=== PATIENT | male | born 1950 | race Caucasian/White ===

== ENCOUNTER 2022-11-26 18:26 | Emergency (ER) | payer OTHER ==
--- OUTSIDE RECORDS SUMMARY | 2022-11-26 18:30 | XMS REPORT | Clinical Summary ---
:1950 Author Organization [facility] Address [address] [place] [address] Care Team Providers Name Role Phone Castro Ghotra MD Unavailable Angelika Thomas MD Primary Care Provider Allergies Active Allergy Reactions Severity Noted Date Comments Sulfamethoxazole-Trimethoprim Hives High 09/30/2014 Medications Medication Sig Dispensed Refills Start Date End Date Status pantoprazole 1 TABLET(S) DAILY 0 09/19/2022 Active (PROTONIX) 40 mg EC HALF HOUR BEFORE tablet BREAKFAST OR FIRST MEAL multivitamin Take 1 tablet by 0 Active (THERAGRAN) tablet mouth. fluticasone propionate Inhale 1 spray (50 0 08/31/20 Active (FLONASE) 50 mcg/spray mcg) into each nasal spray nostril. buPROPion (WELLBUTRIN TAKE 1 TABLET BY 0 09/20/2022 Active SR) 150 mg 12 hr MOUTH TWICE A DAY tablet benazepril (LOTENSIN) TAKE 1 TABLET BY 0 08/11/2022 Active 40 MG tablet MOUTH TWICE A DAY atorvastatin (LIPITOR) TAKE 1 TABLET BY 0 10/11/2022 Active 10 mg tablet MOUTH EVERYDAY AT BEDTIME amLODIPine-benazepril Take 1 capsule by 0 Active (LOTREL) 10 mg-20 mg mouth. per capsule Active Problems Problem Noted Date Depressive disorder 11/14/2022 Overview: on medication; not sucidal/homicidal; co ntrolled Gastric reflux 11/14/2022 Overview: on pantoprazole; controlled Hyperlipidemia 11/14/2022 Overview: on atorvastatin; controlled Hypertension 11/14/2022 Overview: on medication; controlled Malignant neoplasm of prostate 11/14/2022 Overview: prostatectomy Neuropathy 11/14/2022 Overview: on no meds; bottom of feet Lung mass 11/12/2022 Obstructive sleep apnea syndrome 09/30/2012 Overview: on CPAP; using regularly last 10 years Encounters Date Type Specialty Care Team Description 11/26/2022 Ancillary Procedure Radiology [place] Lung willam Connell MD 11/26/2022 Ancillary Procedure Radiology [place] Lung willam Connell MD 11/26/2022 Telephone Pulmonology oDug Morrison MD 11/26/2022 Travel 11/22/2022 Orders Only Thoracic Surgery Knippel, Lung mass ( Primary LLUVIA Bella Dx) 11/20/2022 Hospital Encounter Lab Ko Galeana MD 11/20/2022 Anesthesia Event Pulmonology Lloyd Hu MD Ruiz, Justin Scott 11/20/2022 Surgery Pulmonology [facility], BRONCHOSCOPY [place] ABELARDO Connell MD EBUS PERIPHERAL LESION-RADIAL P ROBE robot case 11/20/2022 Hospital Encounter Pulmonology Lissett, Lung mass (Primary MD Ko Dx) 11/20/2022 Orders Only Pulmonology Doug Morrison Lung mass (Veda rhea Langston MD Dx) 11/20/2022 Travel 11/19/2022 Anesthesia Event Anesthesiology Kelsey Hickman NP 11/19/2022 POEM Appointments Anesthesiology Angelika Thomas MD 11/16/2022 Consult Pulmonology Felisa, Lung mass MD Nova 11/16/2022 Clinical Support Shayy Wilder, Suspected C OVID-19 (Primary Dx); LLUVIA Thompson Lung mass Marleny Gama RN 11/16/2022 Travel 11/15/2022 Prep for Surgery Pulmonology Mackenney, Lung mass ( Primary Donna, SKIVER HEEL TAP Dx) 11/14/2022 Hospital Encounter Cardiology Alec, Lung mass Latira, ENVIRONMENTAL AIR SPECIALIST 11/14/2022 Hospital Encounter Lab Alec, Lung mass Latira, ENVIRONMENTAL AIR SPECIALIST 11/14/2022 Office Visit Internal Medicine Del, Lung mass (Primary Dx); MD Mabel Major depressive disorder, single episod e, moderate; Thomas, Mixed hyperlipi demia; Angelika Barry MD Hypertension; Malignant neopl asm of prostate; Obstructive sle ep apnea syndrome 11/14/2022 NPR Patient Access Del, Diana Monroe MD 11/14/2022 Travel 11/13/2022 Ancillary Procedure Radiology William, Cancer Angelika Barry MD 11/13/2022 Orders Only Internal Medicine Alec, Lung mass (Primary Latira, ENVIRONMENTAL AIR SPECIALIST Dx) 11/12/2022 Ancillary Procedure Radiology William Cancer Angelika Barry MD 10/25/2022 Travel after 11/26/2021 Immunizations Name Administration Dates Next Due Influenza Split High Dose Preservative Free IM 05/31/2022 Surgical History Surgery Date Site/Laterality Comments PROSTATE SURGERY 2005 APPENDECTOMY 09/30/2004 - 09/29/2005 HERNIA REPAIR Bilateral multiple INNER EAR SURGERY 09/30/2015 - Right 09/29/2016 [facility] EBUS 11/20/2022 Right Procedure : BRONCHOSCOPY DX/TX INTERVENTION PERPH WITH EB US PERIPHERAL LES LESION-RADIAL MS OBE robot case; Surgeon: Loki Galeana MD; Locat ion: MAIN PULM PROC; Servi ce: PULMONARY [facility] EBUS GUIDED 11/20/2022 N/A Procedure : BRONCHOSCOPY SAMPL 3/> NODE WITH EBUS 3 OR M ORE STATION/STRUX NODES; Surgeon: Ko Galeana MD; Locat ion: MAIN PULM PROC; Servi ce: PULMONARY Medical History Medical History Date Comments Hypertension 2004 on medication; contr olled Hyperlipidemia 1999 on atorvastatin; con trolled Neuropathy 2016 on no meds; bottom o f feet Gastric reflux 2004 on pantoprazole; con trolled Depressive disorder 2009 on medication; not s ucidal/homicidal; controlled Malignant neoplasm of prostate 2004 prostatec alexis Obstructive sleep apnea syndrome 2012 on CPAP ; using regularly last 10 years Family History Medical History Relation Name Comments Colon cancer Father Isaac Linton Heart disease Father Isaac Linton Dementia Mother Hyperlipidemia Mother Alzheimer's disease Sister Relation Name Status Comments Father Isaac Linton Mother Sister Social History Tobacco Use Types Packs/Day Years Used Date Smoking Tobacco: Former Cigarettes 1.5 36 09/1965 - 09/30/2001 Smokeless Tobacco: Former Snuff Qu it: 09/30/2001 Tobacco Cessation: Counseling Given: Not Answered Alcohol Use Standard Drinks/Week Comments Not Currently 0 (1 standard drink = 0.6 oz pure alcoho l) occasional beer Sex Assigned at Date Recorded Male 10/25/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 Obstetrics History Last Filed Vital Signs Vital Sign Reading Time Taken Comments Blood Pressure 130/96 11/20/2022 1:35 PM POWDER PRESS OPERATOR Pulse 104 11/20/2022 1:35 PM POWDER PRESS OPERATOR Temperature 36.5 C (97.7 F) 11/20/2022 1:20 PM POWDER PRESS OPERATOR Respiratory Rate 16 11/20/2022 1:35 PM POWDER PRESS OPERATOR Oxygen Saturation 100% 11/20/2022 1:35 PM POWDER PRESS OPERATOR Inhaled Oxygen Concentration - - Weight 79.9 kg (176 lb 2.4 oz) 11/26/2022 12:13 PM POWDER PRESS OPERATOR Height 178.5 cm (5' 10.28") 11/14/2022 11:06 AM POWDER PRESS OPERATOR Body Mass Index 25.08 11/14/2022 11:06 AM POWDER PRESS OPERATOR Plan of Treatment Date Type Specialty Care Team Description 11/27/2022 Consult Thoracic Surgery Shiela Dan MD [address] [place], [place] [address] (Wo rk) 11/27/2022 Appointment Radiation Oncology Mary Galeana MD [address], [place] [address] (Wo rk) 11/27/2022 Consult Thoracic Medicine Alden Sutton MD [address], [place] [address] (Wo rk) 11/27/2022 Appointment Pulmonology SánchezisamarJena hernandez, [employer]IVER HEEL TAP [address] [place], [place] [address] (Wo rk) Health Maintenance Due Date Last Done Comments COVID-19 Vaccination (4 - Booster 02/16/2022 12/22/2021, , for Pfizer series) 11/10/2020 Procedures Procedure Name Priority Date/Time Associated Comments Diagnosis MRI BRAIN W WO CONTRAST Routine 11/26/2022 4:43 Lung mass R esults for this PM POWDER PRESS OPERATOR procedure are i n the results section. PETCT INITIAL TREATMENT Routine 11/26/2022 1:38 Lung mass R esults for this STRATEGY PM POWDER PRESS OPERATOR procedure are i n the results section. NGS BLOOD CONTROL Routine 11/20/2022 2:18 Resu lts for this PM POWDER PRESS OPERATOR procedure are i n the results section. HP MOLECULAR BLOOD Routine 11/20/2022 1:49 Result s for this COLLECTION PM POWDER PRESS OPERATOR procedure are i n the results section. JAMAR CASTRO KRAS MUTATION Routine 11/20/2022 12:52 Lung mass Resu lts for this MATERIAL REQUEST PM POWDER PRESS OPERATOR procedure a re in the results section. JAMAR CASTRO EML4/ALK FUSION Routine 11/20/2022 12:52 Lung mass Re sults for this ANALYSIS MATERIAL PM POWDER PRESS OPERATOR procedure are in REQUEST the results section. JAMAR CASTRO EGFR MUTATION Routine 11/20/2022 12:52 Lung mass Resu lts for this MATERIAL REQUEST PM POWDER PRESS OPERATOR procedure a re in the results section. JAMAR IHC PD-L1 MATERIAL Routine 11/20/2022 12:52 Lung mass REQUEST PM POWDER PRESS OPERATOR CYTOLOGY IMAGE-GUIDED Routine 11/20/2022 12:09 Lung mass Re sults for this FNA INTERPRETATION PM POWDER PRESS OPERATOR procedure are in the results section. CYTOLOGY IMAGE-GUIDED Routine 11/20/2022 12:05 Lung mass Re sults for this FNA INTERPRETATION PM POWDER PRESS OPERATOR procedure are in the results section. CYTOLOGY IMAGE-GUIDED Routine 11/20/2022 12:00 Lung mass Re sults for this FNA INTERPRETATION PM POWDER PRESS OPERATOR procedure are in the results section. CYTOLOGY IMAGE-GUIDED Routine 11/20/2022 11:57 Lung mass Re sults for this FNA INTERPRETATION AM POWDER PRESS OPERATOR procedure are in the results section. CYTOLOGY IMAGE-GUIDED Routine 11/20/2022 11:53 Lung mass Re sults for this FNA INTERPRETATION AM POWDER PRESS OPERATOR procedure are in the results section. BRONCHOSCOPY WITH EBUS 3 11/20/2022 11:25 Lung mass OR MORE NODES AM POWDER PRESS OPERATOR BRONCHOSCOPY WITH EBUS 11/20/2022 11:25 Lung mass PERIPHERAL LESION-RADIAL AM POWDER PRESS OPERATOR PROBE COVID-19 (SARS-COV-2) Routine 11/16/2022 1:34 Suspected COVID- 19 Results for this PCR-ASYMPTOMATIC MC PM POWDER PRESS OPERATOR procedur e are in the results section. MANUAL DIFFERENTIAL Routine 11/14/2022 12:47 Lung mass Resu lts for this PM POWDER PRESS OPERATOR procedure are i n the results section. Results CBC Routine 11/14/2022 12:47 Lung mass Results for this PM POWDER PRESS OPERATOR procedure are i n the results section. FRACTIONATED BILIRUBIN Routine 11/14/2022 12:47 Lung mass R esults for this PM POWDER PRESS OPERATOR procedure are i n the results section. TOTAL PROTEIN Routine 11/14/2022 12:47 Lung mass Results fo r this PM POWDER PRESS OPERATOR procedure are i n the results section. ASPARTATE Routine 11/14/2022 12:47 Lung mass Results for this AMINOTRANSFERASE PM POWDER PRESS OPERATOR procedure a re in the results section. ALANINE AMINOTRANSFERASE Routine 11/14/2022 12:47 Lung mass Results for this PM POWDER PRESS OPERATOR procedure are i n the results section. ALKALINE PHOSPHATASE Routine 11/14/2022 12:47 Lung mass Res ults for this PM POWDER PRESS OPERATOR procedure are i n the results section. ALBUMIN LEVEL Routine 11/14/2022 12:47 Lung mass Results fo r this PM POWDER PRESS OPERATOR procedure are i n the results section. .GLOMERULAR FILTRATION Routine 11/14/2022 12:47 Lung mass R esults for this RATE PM POWDER PRESS OPERATOR procedure are i n the results section. SERUM CREATININE Routine 11/14/2022 12:47 Lung mass Results for this PM POWDER PRESS OPERATOR procedure are i n the results section. ALPHA FETOPROTEIN TUMOR Routine 11/14/2022 12:47 Lung mass Results for this MARKER PM POWDER PRESS OPERATOR procedure are i n the results section. HEPATIC FUNCTION PANEL Routine 11/14/2022 12:47 Lung mass PM POWDER PRESS OPERATOR HEPATITIS C VIRUS Routine 11/14/2022 12:47 Lung mass Result s for this ANTIBODY PM POWDER PRESS OPERATOR procedure are i n the results section. APTT Routine 11/14/2022 12:47 Lung mass Results for this PM POWDER PRESS OPERATOR procedure are i n the results section. COMPLETE BLOOD COUNT W/ Routine 11/14/2022 12:47 Lung mass DIFFERENTIAL PM POWDER PRESS OPERATOR PROTHROMBIN TIME Routine 11/14/2022 12:47 Lung mass Results for this PM POWDER PRESS OPERATOR procedure are i n the results section. LACTATE DEHYDROGENASE Routine 11/14/2022 12:47 Lung mass Re sults for this PM POWDER PRESS OPERATOR procedure are i n the results section. MAGNESIUM LEVEL Routine 11/14/2022 12:47 Lung mass Results for this PM POWDER PRESS OPERATOR procedure are i n the results section. PHOSPHORUS LEVEL Routine 11/14/2022 12:47 Lung mass Results for this PM POWDER PRESS OPERATOR procedure are i n the results section. CALCIUM LEVEL TOTAL Routine 11/14/2022 12:47 Lung mass Resu lts for this PM POWDER PRESS OPERATOR procedure are i n the results section. GLUCOSE, RANDOM Routine 11/14/2022 12:47 Lung mass Results for this PM POWDER PRESS OPERATOR procedure are i n the results section. SERUM CREATININE Routine 11/14/2022 12:47 Lung mass PM POWDER PRESS OPERATOR BLOOD UREA NITROGEN Routine 11/14/2022 12:47 Lung mass Resu lts for this PM POWDER PRESS OPERATOR procedure are i n the results section. ELECTROLYTE PANEL Routine 11/14/2022 12:47 Lung mass Result s for this PM POWDER PRESS OPERATOR procedure are i n the results section. EKG, 12-LEAD (SCHEDULED) Routine 11/14/[address] CHEST Routine 10/29/2022 8:16 Cancer Results for this PM POWDER PRESS OPERATOR procedure are i n the results section. OSI CHEST Routine 09/03/2022 11:53 Cancer Results for this AM POWDER PRESS OPERATOR procedure are i n the results section. after 11/26/2021 Results MRI Brain with and without Contrast (11/26/2022 4:43 PM POWDER PRESS OPERATOR) Anatomical Region Laterality Modality Head Magnetic Resonance Specimen (Source) Anatomical Collection Method Collection Time Re ceived Time Location / / Volume Laterality 11/26/2022 5:00 PM POWDER PRESS OPERATOR Impressions 11/26/2022 5:17 PM POWDER PRESS OPERATOR 1. 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 2. No evidence of intracranial metasta sis. Findings were emailed to clinical team eris y the time of dictation. Narrative 11/26/2022 5:17 PM POWDER PRESS OPERATOR FULL RESULT: EXAMINATION: MRI BRAIN W WO CONTRAST on 11/26/2022 4:43 PM HISTORY: Lung mass INDICATION: Cancer staging or restaging COMPARISON: None TECHNIQUE: Multi-sequence MRI of the bra in with and without intravenous contrast as per standard departmental protocol. FINDINGS: There is focus of restricted diffusion i n the right occipital lobe (series 8 image 14). Punctate focus of restricted diffusion in the left frontal lobe on series 8 image 24. There is no abnormal parenchymal or lept omeningeal enhancement. There is no evidence of acute infarction , new hemorrhage, or hydrocephalus. The visualized major intracranial vascular flow voids are unremarkable. The osseous structures and extra-cranial soft tissues are unremarkable. The orbital structures unremarkable. The paranasal sinuses and mastoid air ce lls are clear. Procedure Note Krissy Bailey MD - 11/26/2022Formatting o f this note might be different from the original. FULL RESULT: EXAMINATION: MRI BRAIN W WO CONTRAST on 11/26/2022 4:43 PM HISTORY: Lung mass INDICATION: Cancer staging or restaging COMPARISON: None TECHNIQUE: Multi-sequence MRI of the bra in with and without intravenous contrast as per standard departmental protocol. FINDINGS: There is focus of restricted diffusion i n the right occipital lobe (series 8 image 14). Punctate focus of restricted diffusion in the left frontal lobe on series 8 image 24. There is no abnormal parenchymal or lept omeningeal enhancement. There is no evidence of acute infarction , new hemorrhage, or hydrocephalus. The visualized major intracranial vascular flow voids are unremarkable. The osseous structures and extra-cranial soft tissues are unremarkable. The orbital structures unremarkable. The paranasal sinuses and mastoid air ce lls are clear. IMPRESSION: 1. Small foci of acute ischemia in the r ight occipital and left frontal lobe likely representing embolic infarcts. 2. No evidence of intracranial metastasi s. Findings were emailed to clinical team b y the time of dictation. Ko Galeana MD IMG MRI ORDERABLES PETCT Initial Treatment Strategy (11/26/2022 1:38 PM POWDER PRESS OPERATOR) Anatomical Region Laterality Modality Whole Body Positron Emission To mography (PET) Specimen (Source) Anatomical Collection Method Collection Time Re ceived Time Location / / Volume Laterality 11/26/2022 2:09 PM POWDER PRESS OPERATOR Impressions 11/26/2022 4:36 PM POWDER PRESS OPERATOR 1. Hypermetabolic central right lung mass corresponds with recently biopsied primary lung malignancy. 2. Additional right lung solid, ground glass, and cavitary lesions, some of which are new since chest CT on 10/29/2022, are hypermetabolic and are suspicious for satellite lesions. 3. No hypermetabolic solange disease. I personally reviewed these image(s) cirilo gilliam with the resident's/fellow's interpretations, certify that if a procedure was performed I was physically present, and agree with the final report. 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 To allow for distribution and uptake of radiotracer, the patient was asked to rest quietly for approximately 60-90 minutes. PET/ CT imaging was performed from the skull vertex to mid thigh. CT scanning was done for attenuation correction, image registration, and diagnosis with scan paramete rs optimized to minimize radiation expos ure to the patient. SUV measurements are reported as maximum SUV based on body weight unless otherwise specified. Findings: Head and Neck: No focal activity within the brain. Paranasal sinuses are unremarkable. No hypermetabolic or enlarged cervical lymphadenopathy. Chest: Extensive background centrilobula r emphysema is again noted. Dominant hypermetabolic masslike opacity along the inferior right upper lobe and medial right middle lobe demonstrates SUV of 15. Given extensive adjacent platelike atelectasis and lack of intravenous c ontrast, definite measurement of this ma ss is difficult to provide. However, this mass is relatively unchanged in size on series 4 image 130, measuring 5 cm today, previously 4.9 cm. Adjacent consolidative masslike opacity in the right upper lobe image 122 and proximal 3.7 x 2.6 cm demonstrates SUV of 4. At least 3 FDG avid groundglass and cavi tary lesions in the right lung are new, including: * Cavitary 1.4 cm hypermetabolic lesio n in the posterior medial right lung apex (image 92) with SUV of 2.7. * Cavitary 1 cm hypermetabolic lesion in the posterior right upper lung (image 113) with SUV of 3.5. * Ground glass hypermetabolic patchy o pacity measuring 2.1 cm along the posterior right upper lobe (image 120) with SUV of 4.1. No hypermetabolic or enlarged mediastina l, hilar, or axillary lymph nodes. No pleural or pericardial effusion. Multivessel coronary artery calcifications are noted. Abdomen and Pelvis: No suspicious hepati c lesion. Unremarkable gallbladder, spleen, pancreas, and adrenals. Unremarkable kidneys with physiologic uptake in the urinary tract. Metallic clips in the prost atectomy bed noted. Physiologic uptake t hroughout the otherwise unremarkable bowel. No hypermetabolic or enlarged abdominope lvic lymph nodes. Musculoskeletal: No hypermetabolic or laba spicious lytic or blastic osseous lesions. Procedure Note Joey Lee MD - 11/26/2022Formattin g of this note might be different from the original. 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 To allow for distribution and uptake of radiotracer, the patient was asked to rest quietly for approximately 60-90 minutes. PET/CT imag ing was performed from the skull vertex to mid thigh. CT scanning was done for attenuation correction, image registration, and diagnosis with scan parameters optimized to minimize radiation exposure to the patie nt. SUV measurements are reported as maximum SUV based on body weight unless otherwise specified. Findings: Head and Neck: No focal activity within the brain. Paranasal sinuses are unremarkable. No hypermetabolic or enlarged cervical lymphadenopathy. Chest: Extensive background centrilobula r emphysema is again noted. Dominant hypermetabolic masslike opacity along the inferior right upper lobe and medial right middle lobe demonstrates SUV of 15. Given extensive adjacent platelike atelectasis and lack of intravenous contrast, definite measurement of this mass is difficult to provide. However, this mass is relatively unchanged in size on series 4 image 130, measuring 5 cm today, previously 4.9 cm. Adjacent consolidative masslike opacity in the right upper lobe image 122 and proximal 3.7 x 2.6 cm demonstrates SUV of 4. At least 3 FDG avid groundglass and cavi tary lesions in the right lung are new, including: * Cavitary 1.4 cm hypermetabolic lesion in the posterior medial right lung apex (image 92) with SUV of 2.7. * Cavitary 1 cm hypermetabolic lesion in the posterior right upper lung (image 113) with SUV of 3.5. * Ground glass hypermetabolic patchy opa city measuring 2.1 cm along the posterior right upper lobe (image 120) with SUV of 4.1. No hypermetabolic or enlarged mediastina l, hilar, or axillary lymph nodes. No pleural or pericardial effusion. Multivessel coronary artery calcifications are noted. Abdomen and Pelvis: No suspicious hepati c lesion. Unremarkable gallbladder, spleen, pancreas, and adrenals. Unremarkable kidneys with physiologic uptake in the urinary tract. Metallic clips in the prostatectomy bed noted. Physiologic upt itzel throughout the otherwise unremarkable bowel. No hypermetabolic or enlarged abdominope lvic lymph nodes. Musculoskeletal: No hypermetabolic or alba spicious lytic or blastic osseous lesions. IMPRESSION: 1. Hypermetabolic central right lung mas s corresponds with recently biopsied primary lung malignancy. 2. Additional right lung solid, groundgl ass, and cavitary lesions, some of which are new since chest CT on 10/29/2022, are hypermetabolic and are suspicious for satellite lesions. 3. No hypermetabolic solange disease. I personally reviewed these image(s) cirilo gilliam with the resident's/fellow's interpretations, certify that if a procedure was performed I was physically present, and agree with the final report. Ko Galaena MD IMG PETCT ORDERABLES NGS Blood Control (11/20/2022 2:18 PM POWDER PRESS OPERATOR) athologist Signature Molecular Yes [facility]CER [place] (Received) Specimen Anatomical Collection Method Collection Time Receive d Time (Source) Location / / Volume Laterality Blood 11/20/2022 2:18 PM 3 9:20 POWDER PRESS OPERATOR AM POWDER PRESS OPERATOR Ko MERAZ HP MOLECULAR DIAG IF ORDERABLES Performing Organization Address City/State/ZIP Code Phon e Number [facility] CANCER Unless otherwise noted, [address] all lab tests performed by: Division of Pathology and Laboratory Medicine [facility] Specimen Collection -FFPE (11/20/2022 1:49 PM POWDER PRESS OPERATOR) [facility] Method Time [facility] Molecular Yes [facility] (Received) [facility] Beaker Ap Link [id number] [facility] Block Number [id number] [facility] (Qualitative) [facility] Specimen Anatomical Collection Method Collection Time Receive d Time (Source) Location / / Volume Laterality FFPE 11/20/2022 1:49 PM 3 1:49 POWDER PRESS OPERATOR PM POWDER PRESS OPERATOR Ko CHAPMAN MD NONBLOOD COLLECTIO NS Performing Organization Address City/[facility]/ZIP Code Phon e Number [facility] CANCER Unless otherwise noted, [address] all lab tests performed by: Division of Pathology and Laboratory Medicine Ronny Rocha MD EML4/ALK Fusion Analysis Material Request (11/20/2022 12:52 PM POWDER PRESS OPERATOR) Component Value Ref Test Analysis Performed At [facility] Method Time [facility] Archived The test is to be performed on tissue from case [id number] 11/23/2022 [facility] Material The case report, slides, an d blocks for the cited accession were retrieved from archives. The pathologist examined the candidate H&E slide and selected the block appropriate to the specifications o 9:51 AM POWDER PRESS OPERATOR f the ordered molecular anal ysis. Unstained slides and H&E slide were prepared and forwarded to Molecular Diagnostic Laboratory where the subject molecular test will be performed. Results will be reported separately. Pathologist Electronically 11/23/2022 [facility] Signature signed by Ariel 9:51 AM JUAN PABLO Jovel MD on 11/23/22 9:51 AM Specimen Anatomical Collection Method Collection Time Receive d Time (Source) Location / / Volume Laterality Tissue 11/20/2022 12:52 11/20/2022 PM POWDER PRESS OPERATOR 12:52 PM POWDER PRESS OPERATOR Ko Galeana MD, [facility] AP BIOMARKERS Performing Organization Address City/State/ZIP Code [place] [address] [address] MD KRAS Mutation Material Request (11/20/2022 12:52 PM POWDER PRESS OPERATOR) Component Value Ref Test Analysis Performed At [facility] Method Time Signature Archived The test is to be performed on tissue from case [id number] 11/23/2022 [facility] Material The case report, slides, an d blocks for the cited accession were retrieved from archives. The pathologist examined the candidate H&E slide and selected the block appropriate to the specifications o 9:51 AM POWDER PRESS OPERATOR f the ordered molecular anal ysis. Unstained slides and H&E slide were prepared and forwarded to [facility] Diagnostic Laboratory where the subject molecular test will be performed. Results will be reported separately. Pathologist Electronically 11/23/2022 [facility] Signature signed by Ariel 9:51 AM JUAN PABLO Jovel MD on 11/23/22 9:51 AM Specimen Anatomical Collection Method Collection Time Receive d Time (Source) Location / / Volume Laterality Tissue 11/20/2022 12:52 11/20/2022 PM POWDER PRESS OPERATOR 12:52 PM POWDER PRESS OPERATOR Ko Galeana MD [facility] BIOMARKERS Performing Organization Address City/State/ZIP Code Phon e Number [facility] [place] [address] [address] MD EGFR Mutation Material Request (11/20/2022 12:52 PM POWDER PRESS OPERATOR) Component Value Ref Test Analysis Performed At [facility] Method Time Signature Archived The test is to be performed on tissue from case [id number] 11/23/2022 [facility] Material The case report, slides, an d blocks for the cited accession were retrieved from archives. The pathologist examined the candidate H&E slide and selected the block appropriate to the specifications o 9:51 AM POWDER PRESS OPERATOR f the ordered molecular anal ysis. Unstained slides and H&E slide were prepared and forwarded to [facility] Diagnostic Laboratory where the subject molecular test will be performed. Results will be reported separately. Pathologist Electronically 11/23/2022 [facility] Signature signed by Ariel 9:51 AM JUAN PABLO Jovel MD on 11/23/22 9:51 AM Specimen Anatomical Collection Method Collection Time Receive d Time (Source) Location / / Volume Laterality Tissue 11/20/2022 12:52 11/20/2022 PM POWDER PRESS OPERATOR 12:52 PM POWDER PRESS OPERATOR Ko Galeana MD [facility] AP BIOMARKERS Performing Organization Address City/State/ZIP Code Phon e Number [facility] [place] [address] [address] IHC PD-L1 Material Request (11/20/2022 12:52 PM POWDER PRESS OPERATOR) Specimen Anatomical Collection Method Collection Time Receive d Time (Source) Location / / Volume Laterality Tissue 11/20/2022 12:52 11/20/2022 PM POWDER PRESS OPERATOR 12:52 PM POWDER PRESS OPERATOR Ko Galeana MD [facility] IP [facility] BIOMARKERS Performing Organization Address City/State/ZIP Code [place] [address] [address] (ABNORMAL) Cytology Image-Guided FNA Interpretation (11/20/2022 12:09 PM POWDER PRESS OPERATOR) Only the most recent of5 resultswithin the time period is included. Component Value Ref Test Analysis Performed Pathologis t Range Method Time At Signature Gross Specimens procured: 11/21/2022 [facility] BS Description 6 Diff Quik; 6 Pap Stain Slides 6:10 P M 5 ml, slightly cloudy bloody fluid in RPMI POWDER PRESS OPERATOR 1 Cell Block Date/Time Placed in Formalin: 11/20/22 2:58 PM Size: 2.24 cm Immediate assessment for specimen adequacy was made x1 by Dr Berenice Pride. Immediate Adequate 11/21/2022 [facility] Assessment cellularity, favor 6:10 PM malignant POWDER PRESS OPERATOR Major MALIGNANT (A) 11/21/2022 [facility] Samaria ctronically Classification 6:10 PM paula d by Kallie Pride MD on 11/21/2022 at 6:10 PM Diagnosis Lymph node, right inferior interlobar, 11Ri, fin e needle aspiration: 11/21/2022 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 Immun operoxidase stains, performed on cell block sections with appropriate controls, show that the tumor cells are positive for p40 and negative for TTF-1. These results are in keeping with the above diagnosis. 6:10 PM POWDER PRESS OPERATOR PD-L1 (Clone [id number], Dako Phar mDx) Tumoral Proportion Score (TPS): positive, >90% Assay Information: The PD-L1 assay is manufactured by [employer] and uses a monoclonal anti-PD-L1, clone [id number]. It is performed on formalin-fixed paraffin- embedded tissue using an [employer] Dako autostai ner and polymer based detect ion kit, as specified by the sales program coordinator. It is approved for use as a sas developer analyst diagnostic assay for specific therapies on certain tumor types. Interpretation guidelines du y. For tumoral percentage sc ore (TPS), the percentage of tumoral membranous labeling of any intensity is assessed. Please refer to the intended therapy package insert for appropriate use of results. Per formance characteristics on other tissue types such decalcified specimens and on non-approved tumor types and therapies cannot be guaranteed. Retained/Biomark SR: 12 S, 2 CB, 3 IP 11/21/2022 [facility] er Testing 6:10 PM Biomarker Testing: POWDER PRESS OPERATOR MDL Cell Block: >300 cells MDL Pap: 4 S MDL DQ: 1 S FISH DQ: 1 S Informational Some tests 11/21/2022 [facility] Points reported here may 6:10 PM have been POWDER PRESS OPERATOR developed and performance characteristics determined by [facility] Pathology and Laboratory Medicine. These tests have not been specifically cleared or approved by the U.S. Food and Drug Administration. Specimen Anatomical Collection Method Collection Time Receive d Time (Source) Location / / Volume Laterality Fine Needle Asp 11/20/2022 12:09 11/20/19 23 2:28 (Lymph Node(s), PM POWDER PRESS OPERATOR PM POWDER PRESS OPERATOR Right, Inferior Interlobar, 11Ri) Comment: 11Ri Mass size 22.4 mm Ko Galeana MD LAB CYTOLOGY ORDERABLES Performing Organization Address City/State/ZIP Code Phon e Number [facility] [place] [address] [address] COVID-19 (SARS-CoV-2) PCR-Asymptomatic (11/16/2022 1:34 PM POWDER PRESS OPERATOR) [facility] Method Time Signature COVID19 (SARS Not Detected Not Detected PR CoV-2) [facility] Comment: This test is a qualitative reverse-trans criptase polymerase chain reaction (RT- PCR) developed for the Stephanie MELISSA [employer] system and intended for qualitative detection of SARS CoV-2 RNA in nasopharyngeal a nd oropharyngeal swab specimens collecte d from any individuals, including those suspected o f COVID-19 by their healthcare provider, and those without symptoms or other reasons to suspect COVID-19. A fact sheet for patients provided by the sales program coordinator ( [employer]) can be rev iewed at: https://www.Cloudian.gov/media/199404/downloa d. A fact sheet for Health Care providers is provided by the sales program coordinator ([employer]) and can be reviewed at: https://www.Cloudian.gov/media/118627/download Results must be interpreted within the c ontext of all relevant clinical and laboratory findings and should not form the sole basis for a diagnosis or treatment decision. Positive results do not rule out bacterial infection or co- infection with other viruses. Negative results do not rule ou t SARS-CoV-2 and must be combined with clinical observations, patient history, and/or epidemiological information. "Presumptive Positive" results are due t o partial amplification of SARS-CoV-2 targets and indicates low amounts of virus present in the specimen at or near the limit of detection. Regardless, individuals with "Presumptive Positive" results should be managed per institutional guidelines as individuals positive for SARS-CoV-2 virus, including use of appropriate infection control protocols. Internal controls are included to assess for possible amplification inhibitors. If inhibition is detected, testing is repeated and if inhibition is confirmed the specimen is resulted as "Invalid". When an "Invalid" result occurs, it is recomm ended to wait 3 days before submitting a new spec imen for testing if clinically indicated. This assay has been approved by the FDA for use only under Emergency Use Authorization (EUA) in laboratories that have been CLIA-certified to perform moderate-complexity and high-complexity tests. The performance characteristics of this assay were verified by the Microbiology Laboratory at [facility], CLIA Accreditation #: [id number] and CAP Accreditation #: [id number]. COVID19 SARS Source ENVIR[employer]MENTAL [employer] SPECIALIST Swab PR [facility] COVID19 SARS Indication Pre-OR Procedure [facility] Specimen (Source) Anatomical Collection Method Collection Time Re ceived Time Location / / Volume Laterality Nasopharyngeal Swab 11/16/2022 1:34 11/16 PM POWDER PRESS OPERATOR 3:17 PM POWDER PRESS OPERATOR Ko Galeana MD MICROBIOLOGY - GENERAL ORDER MARVIN Performing Organization Address City/[facility]/ZIP Code Phon e Number [facility] CANCER Unless otherwise noted, [address] all lab tests performed by: Division of Pathology and Laboratory Medicine [address] [place] [address] Glucose, Random (11/14/2022 12:47 PM POWDER PRESS OPERATOR) athologist Signature Glucose Random 81 70 - 199 [facility] mg/dL [facility] Comment: Effective 04/25/16, the glucose reference intervals have been updated based on [place] Diabetes [employer] guidelines (Standards of Medical Care in Diabetes 2016. Diabetes Care 2016; 39: S13-S22). Fasting blood glucose: Normal: 70-99 mg/dL Impaired fasting glucose (increased risk for diabetes or pre-diabetes): 100- 125 mg/dL Diabetes mellitus: >/=126 mg/dL Random blood glucose: Normal: 70-199 mg/dL Note: Random glucose >100 mg/dL is assoc iated with increased risk for diabetes Specimen Anatomical Collection Method Collection Time Receive d Time (Source) Location / / Volume Laterality Blood 11/14/2022 12:47 11/14/2022 1:08 PM POWDER PRESS OPERATOR PM POWDER PRESS OPERATOR Cyndi Michael NP LAB BLOOD ORDERABLES Performing Organization Address City/[facility]/ZIP Code Phon e Number [facility] Unless otherwise noted, [address] all lab tests performed by: Division of Pathology and Laboratory Medicine [address] [place] [address] .Serum Creatinine (11/14/2022 12:47 PM POWDER PRESS OPERATOR) athologist Signature Creatinine 0.75 0.67 - 1.17 [facility] mg/dL [facility] Specimen Anatomical Collection Method Collection Time Receive d Time (Source) Location / / Volume Laterality Blood 11/14/2022 12:47 11/14/2022 1:08 PM POWDER PRESS OPERATOR PM POWDER PRESS OPERATOR Cyndi Michael NP LAB BLOOD ORDERABLES Performing Organization Address City/[facility]/ZIP Code Phon e Number [facility] Unless otherwise noted, [address] all lab tests performed by: Division of Pathology and Laboratory Medicine [address] [place] [address] (ABNORMAL) .CBC (11/14/2022 12:47 PM POWDER PRESS OPERATOR) athologist [facility] WBC 14.7 (H) 4.0 - 11.0 [facility] RBC 4.32 (L) 4.50 - PR MD 6.00 M/[facility] Hgb 13.3 (L) 14.0 - PR MD 18.0 gm/dL [facility] Hct 40.7 40.0 - PR MD 54.0 % [facility] MCV 94 82 - 98 [facility] MCH 30.8 27.0 - PR MD 31.0 pg [facility] MCHC 32.7 31.0 - PR MD 36.0 gm/dL [facility] RDW-SD 45.5 35.1 - PR MD 46.3 [facility] RDW-CV 13.3 12.0 - PR MD 15.5 % [facility] Platelet count 389 140 - 440 [facility] K/[facility] MPV 11.3 (H) 4.0 - 10.4 [facility] INRBC 0.0 <=0.0 % [facility] Comment: The INRBC (instrument NRBC) value reflec ts the enumeration of nucleated red blood cells contained i n a 200uL sample of whole blood analyzed by the instrumen t. This value may differ from the NRBC value reported in a manual differential, which is based on a 100 cell differentia l. Specimen Anatomical Collection Method Collection Time Receive d Time (Source) Location / / Volume Laterality Blood 11/14/2022 12:47 11/14/2022 1:01 PM POWDER PRESS OPERATOR PM POWDER PRESS OPERATOR Cyndi Michael NP LAB BLOOD ORDERABLES Performing Organization Address City/State/ZIP Code Phon e Number [facility] Unless otherwise noted, [address] all lab tests performed by: Division of Pathology and Laboratory Medicine [address] [place] [address] Glomerular Filtration Rate (11/14/2022 12:47 PM POWDER PRESS OPERATOR) [facility] e[facility] 95 >=60 [facility] mL/min/1.73 [facility] sq. m Comment: The eGFRcr is calculated with the 2020 KD-EPI creatinine equation using creatinine, patient's age, and sex for adults 18 years of age and older. Other factors, especially muscle mass, may affect accuracy and need to be considered. According to the Kidney Disease: Improvi ng Global Outcomes (KDIGO) CKD Work Group 2012 Clinical Practice Guideline, chronic kidney disease (CKD) is defined as the abnormalities of kidney structure or function, present for more than 3 months, with implications for health. CKD should be c lassified by cause, GFR category, and albuminuria category. KDIGO guidelines provide the following GFR categories Stage Description GFR mL/min/1.73 m2 G1* Normal or high >= 90 G2* Mildly decreased 60-89 G3a Mildly to moderately decreased 45-59 G3b Moderately to severely decreased 30- 44 G4 Severely decreased 15-29 G5 Kidney failure <15 *In the absence of evidence of kidney da mage, neither G1 nor G2 fulfill criteria for CKD. Specimen Anatomical Collection Method Collection Time Receive d Time (Source) Location / / Volume Laterality Blood 11/14/2022 12:47 11/14/2022 1:08 PM POWDER PRESS OPERATOR PM POWDER PRESS OPERATOR Cyndi Michael NP LAB BLOOD ORDERABLES Performing Organization Address City/State/ZIP Code Phon e Number [facility] CANCER Unless otherwise noted, [place] [address] [address] all lab tests performed by: Division of Pathology and Laboratory Medicine [facility] Fractionated Bilirubin (11/14/2022 12:47 PM POWDER PRESS OPERATOR) P athologist Signature Bili Total 0.4 <=1.2 mg/dL [facility] Comment: Indocyanine Green (ICG) may cause falsel y elevated bilirubin results. Total and direct bilirubin must not be measured from samples containing indocyanine green. False elevation of total bilirubin can b e seen in patients with IgG concentrations above 28 g/L. Bili Direct <0.2 <=0.3 mg/dL PR MD [facility] Comment: Indocyanine Green (ICG) may cau se falsely elevated bilirubin results. Total and direct bilirubin must not be measure d from samples containing indocyanine green. Bili Indirect See Note 0.0 - 0.9 mg/dL PR MD [facility] Comment: Unable to calculate Indirect Bi lirubin result due to some parameters are outside reportable range Specimen Anatomical Collection Method Collection Time Receive d Time (Source) Location / / Volume Laterality Blood 11/14/2022 12:47 11/14/2022 1:08 PM POWDER PRESS OPERATOR PM POWDER PRESS OPERATOR Cyndi Michael NP LAB BLOOD ORDERABLES Performing Organization Address City/State/ZIP Code Phon e Number [facility] CANCER Unless otherwise noted, [address] all lab tests performed by: Division of Pathology and Laboratory Medicine [address] [place] [address] Hepatitis C Virus Ab (11/14/2022 12:47 PM POWDER PRESS OPERATOR) Patholo gist Method Time Signature HCVAb. Non Reactive Non Reactive [facility] Comment: Antibody detection in the immunocompromi sed and immunosuppressed population may be delayed or absent entirely. Therefore serial testing, correlation with other clinical findings, and supplemental testin g (if available) should be taken into co nsideration when interpreting the results. Specimen Anatomical Collection Method Collection Time Receive d Time (Source) Location / / Volume Laterality Blood 11/14/2022 12:47 11/14/2022 1:32 PM POWDER PRESS OPERATOR PM POWDER PRESS OPERATOR Cyndi Michael NP LAB BLOOD ORDERABLES Performing Organization Address City/[facility] Phon e Number [facility] Unless otherwise noted, [address] all lab tests performed by: Division of Pathology and Laboratory Medicine [address] [place] [address] aPTT (11/14/2022 12:47 PM POWDER PRESS OPERATOR) P athologist Signature aPTT 28.4 22.8 - 34.2 [facility](s) [facility] Specimen Anatomical Collection Method Collection Time Receive d Time (Source) Location / / Volume Laterality Blood 11/14/2022 12:47 11/14/2022 1:01 PM POWDER PRESS OPERATOR PM POWDER PRESS OPERATOR Narrative [facility] - 1:31 PM POWDER PRESS OPERATOR This lab cannot be scheduled at the [facility] locations due to collection/proccessing restrictions: [facility] and [facility]. Cyndi Michael NP LAB BLOOD ORDERABLES Performing Organization Address City/[facility]/ZIP Code Phon e Number [facility] Unless otherwise noted, [address] all lab tests performed by: Division of Pathology and Laboratory Medicine [address] [place], [place] [address]d AFP (11/14/2022 12:47 PM POWDER PRESS OPERATOR) [facility] AFP <2.7 <=8.3 ng/mL [facility] Comment: Results greater than 45,875.00 ng/mL may not be reliable due to matrix effect with extended dilution as it exceeds the sales program coordinator's recommended limit. Caution should be exercised when interpreting such values and done in conjunction with clinical context. This test is measured by electrochemilum inescence immunoassay on Stephanie Melissa immunoassay analyzers. Results obtained in different methods are not interchangeable. Specimen Anatomical Collection Method Collection Time Receive d Time (Source) Location / / Volume Laterality Blood 11/14/2022 12:47 11/14/2022 1:09 PM POWDER PRESS OPERATOR PM POWDER PRESS OPERATOR Cyndi Michael NP LAB BLOOD ORDERABLES Performing Organization Address City/State/ZIP Code Phon e Number [facility] CANCER Unless otherwise noted, [place] [address] [place] all lab tests performed by: Division of Pathology and Laboratory Medicine [address] [place] [address] (ABNORMAL) Differential (11/14/2022 12:47 PM POWDER PRESS OPERATOR) [facility] Neutrophil % 73.6 (H) 42.0 - [facility] 66.0 % [facility] CENTER Lymphocyte % 14.3 (L) 24.0 - [facility] 44.0 % [facility] Monocyte % 7.6 (H) 2.0 - 7.0 [facility] Eosinophil % 3.6 1.0 - 4.0 [facility] Basophil % 0.5 0.0 - 1.0 [facility] IGRE % 0.4 0.0 - 0.4 [facility] Comment: IGRE % count includes Metamyelo cytes, Myelocytes, and Promyelocytes. Neutrophil Abs 10.84 (H) 1.70 - 7.30 K/uL [facility] Lymphocyte Abs 2.10 1.00 - 4.80 K/uL [facility] Monocyte Abs 1.12 (H) 0.08 - 0.70 K/uL [facility] Eosinophil Abs 0.53 (H) 0.04 - 0.40 K/uL [facility] Basophil Abs 0.07 0.00 - 0.10 K/uL [facility] IG Abs 0.06 (H) 0.00 - 0.04 K/uL PR MD NAIN Pat[facility] Specimen Anatomical Collection Method Collection Time Receive d Time (Source) Location / / Volume Laterality Blood 11/14/2022 12:47 11/14/2022 PM POWDER PRESS OPERATOR 1:01 PM POWDER PRESS OPERATOR Cyndi Michael NP LAB BLOOD ORDERABLES Performing Organization Address City/[facility] Phon e Number [facility] CANCER Unless otherwise noted, [address] all lab tests performed by: Division of Pathology and Laboratory Medicine [address] [place] [address] Prothrombin Time with INR (11/14/2022 12:47 PM POWDER PRESS OPERATOR) athologist Signature PT 13.3 11.9 - 14.1 [facility](s) [facility] INR 1.06 0.89 - 1.10 [facility] Specimen Anatomical Collection Method Collection Time Receive d Time (Source) Location / / Volume Laterality Blood 11/14/2022 12:47 11/14/2022 1:01 PM POWDER PRESS OPERATOR PM POWDER PRESS OPERATOR Narrative [facility] - 1:31 PM POWDER PRESS OPERATOR This lab cannot be scheduled at the [facility] locations due to collection/proccessing restrictions: [facility] and [facility]. Cyndi Michael NP LAB BLOOD ORDERABLES Performing Organization Address [facility] Phon e Number [facility] CANCER Unless otherwise noted, [address] all lab tests performed by: Division of Pathology and Laboratory Medicine [address] [place], [place] [address]d BUN (11/14/2022 12:47 PM POWDER PRESS OPERATOR) P athologist Signature BUN 15 6 - 23 [facility] mg/dL [facility] Specimen Anatomical Collection Method Collection Time Receive d Time (Source) Location / / Volume Laterality Blood 11/14/2022 12:47 11/14/2022 1:08 PM POWDER PRESS OPERATOR PM POWDER PRESS OPERATOR Cyndi Michael NP LAB BLOOD ORDERABLES Performing Organization Address City/[facility] Phon e Number [facility] CANCER Unless otherwise noted, [address] all lab tests performed by: Division of Pathology and Laboratory Medicine [id number] ALT (11/14/2022 12:47 PM POWDER PRESS OPERATOR) athologist Signature ALT 23 <=41 U/L [facility] Specimen Anatomical Collection Method Collection Time Receive d Time (Source) Location / / Volume Laterality Blood 11/14/2022 12:47 11/14/2022 1:08 PM POWDER PRESS OPERATOR PM POWDER PRESS OPERATOR Cyndi Michael NP LAB BLOOD ORDERABLES Performing Organization Address City/[facility]/ZIP [facility] [place] Phon e Number [facility] CANCER Unless otherwise noted, [address] all lab tests performed by: Division of Pathology and Laboratory Medicine [facility] [place] Aspartate Aminotransferase (11/14/2022 12:47 PM POWDER PRESS OPERATOR) athologist Signature AST 23 <=40 U/L [facility] Specimen Anatomical Collection Method Collection Time Receive d Time (Source) Location / / Volume Laterality Blood 11/14/2022 12:47 11/14/2022 1:08 PM POWDER PRESS OPERATOR PM POWDER PRESS OPERATOR Cyndi Michael NP LAB BLOOD ORDERABLES Performing Organization Address City/[facility] Phon e Number [facility] CANCER Unless otherwise noted, [address] all lab tests performed by: Division of Pathology and Laboratory Medicine [facility] [place] Total Protein (11/14/2022 12:47 PM POWDER PRESS OPERATOR) athologist Signature Total Protein 7.8 6.4 - 8.3 [facility] g/dL [facility] Specimen Anatomical Collection Method Collection Time Receive d Time (Source) Location / / Volume Laterality Blood 11/14/2022 12:47 11/14/2022 1:08 PM POWDER PRESS OPERATOR PM POWDER PRESS OPERATOR Cyndi Michael NP LAB BLOOD ORDERABLES Performing Organization Address City/[facility] Phon e Number [facility] CANCER Unless otherwise noted, [address] all lab tests performed by: Division of Pathology and Laboratory Medicine [address] [place] [address] [place] Phosphorus Level (11/14/2022 12:47 PM POWDER PRESS OPERATOR) athologist Signature Phosphorus 3.2 2.5 - 4.5 [facility] mg/dL [facility] Specimen Anatomical Collection Method Collection Time Receive d Time (Source) Location / / Volume Laterality Blood 11/14/2022 12:47 11/14/2022 1:08 PM POWDER PRESS OPERATOR PM POWDER PRESS OPERATOR Cyndi Michael NP LAB BLOOD ORDERABLES Performing Organization Address City/[facility]/ZIP Code Phon e Number [facility] CANCER Unless otherwise noted, [address] all lab tests performed by: Division of Pathology and Laboratory Medicine [address] (ABNORMAL) Alkaline Phosphatase (11/14/2022 12:47 PM POWDER PRESS OPERATOR) athologist [facility] Alk Phos 138 (H) 40 - 129 [facility] U/L [facility] Specimen Anatomical Collection Method Collection Time Receive d Time (Source) Location / / Volume Laterality Blood 11/14/2022 12:47 11/14/2022 1:08 PM POWDER PRESS OPERATOR PM POWDER PRESS OPERATOR Cyndi Michael NP LAB BLOOD ORDERABLES Performing Organization Address City/[facility]/ZIP Code Phon e Number [facility] Unless otherwise noted, [address] all lab tests performed by: Division of Pathology and Laboratory Medicine [address] [place] Magnesium Level (11/14/2022 12:47 PM POWDER PRESS OPERATOR) [facility] Magnesium 2.4 1.6 - 2.6 [facility] mg/dL [facility] Specimen Anatomical Collection Method Collection Time Receive d Time (Source) Location / / Volume Laterality Blood 11/14/2022 12:47 11/14/2022 1:08 PM POWDER PRESS OPERATOR PM POWDER PRESS OPERATOR Cyndi Michael NP LAB BLOOD ORDERABLES Performing Organization Address City/[facility]/ZIP Code Phon e Number [facility] CANCER Unless otherwise noted, [address] all lab tests performed by: Division of Pathology and Laboratory Medicine [address] (ABNORMAL) LDH (11/14/2022 12:47 PM POWDER PRESS OPERATOR) athologist [facility] LDH 246 (H) 135 - 225 [facility] U/L [facility] Comment: Results greater than 1651 U/L m ay not be reliable due to matrix effect with extended dilution as it exceeds the manu facturer's recommended limit. Caution should be exercised when interpreting such valu es and done in conjunction with clinical context. Specimen Anatomical Collection Method Collection Time Receive d Time (Source) Location / / Volume Laterality Blood 11/14/2022 12:47 11/14/2022 1:09 PM POWDER PRESS OPERATOR PM POWDER PRESS OPERATOR Cyndi Michael NP LAB BLOOD ORDERABLES Performing Organization Address City/State/ZIP Code Phon e Number [facility] CANCER Unless otherwise noted, [address] all lab tests performed by: Division of Pathology and Laboratory Medicine [address] Calcium Level (11/14/2022 12:47 PM POWDER PRESS OPERATOR) athologist Signature Calcium Lvl 9.5 8.4 - 10.2 [facility] mg/dL [facility] Specimen Anatomical Collection Method Collection Time Receive d Time (Source) Location / / Volume Laterality Blood 11/14/2022 12:47 11/14/2022 1:08 PM POWDER PRESS OPERATOR PM POWDER PRESS OPERATOR Cyndi Michael NP LAB BLOOD ORDERABLES Performing Organization Address City/[facility]/ZIP Code Phon e Number [facility] CANCER Unless otherwise noted, [address] all lab tests performed by: Division of Pathology and Laboratory Medicine [address] [place] Albumin Level (11/14/2022 12:47 PM POWDER PRESS OPERATOR) athologist Signature Albumin Lvl 4.6 3.5 - 5.2 [facility] gm/dL [facility] Specimen Anatomical Collection Method Collection Time Receive d Time (Source) Location / / Volume Laterality Blood 11/14/2022 12:47 11/14/2022 1:08 PM POWDER PRESS OPERATOR PM POWDER PRESS OPERATOR Cyndi Michael NP LAB BLOOD ORDERABLES Performing Organization Address City/[facility]/ZIP Code Phon e Number [facility] CANCER Unless otherwise noted, [address] all lab tests performed by: Division of Pathology and Laboratory Medicine [address] [place] Electrolyte Panel (11/14/2022 12:47 PM POWDER PRESS OPERATOR) P athologist Signature Sodium Lvl 142 136 - 145 [facility] mEq/L [facility] Potassium Lvl 3.8 3.5 - 5.1 [facility] mEq/L [facility] Chloride 104 98 - 107 [facility] mEq/L [facility] CO2 26 22 - 29 [facility] mEq/L [facility] Anion Gap 12 4 - 14 [facility] mEq/L [facility] Specimen Anatomical Collection Method Collection Time Receive d Time (Source) Location / / Volume Laterality Blood 11/14/2022 12:47 11/14/2022 1:08 PM POWDER PRESS OPERATOR PM POWDER PRESS OPERATOR Cyndi Michael NP LAB BLOOD ORDERABLES Performing Organization Address City/State/ZIP Code Phon e Number [facility] CANCER Unless otherwise noted, [place] [address] CENTER all lab tests performed by: Division of Pathology and Laboratory Medicine [address] [facility] EKG, 12-Lead (Scheduled) (11/14/2022) Specimen (Source) Anatomical Location Collection Method / Collectio n Time Received Time / Laterality Volume Narrative This result has an attachment that is no t available. Cyndi Michael NP ECG ORDERABLES Performing Organization Address City/State/ZIP Code Phon e Number [facility] Chest (10/29/2022 8:16 PM POWDER PRESS OPERATOR) Specimen (Source) Anatomical Location Collection Method / Collectio n Time Received Time / Laterality Volume Narrative Systemgenerated, Documentation - 023 8:16 PM POWDER PRESS OPERATOR Study acquired at another institution. For comparison only. No MD Navarro originated interpretation requested or a vailable. Angelika Thomas MD IMG OUTSIDE IMAGE ORDERABLES [facility] Chest (09/03/2022 11:53 AM POWDER PRESS OPERATOR) Specimen (Source) Anatomical Location Collection Method / Collectio n Time Received Time / Laterality Volume Narrative Systemgenerated, Documentation - 023 11:53 AM POWDER PRESS OPERATOR Study acquired at another institution. For comparison only. No MD Navarro originated interpretation requested or a vailable. Angelika Thomas MD IMG OUTSIDE IMAGE ORDERABLES after 11/26/2021 Insurance Payer Benefit Plan / Subscriber ID Effective Dates Phone Addre ss Type Group [employer] MEDICARE AETNA MEDICARE [id number] 2022-Betsy [address] [place] [address] Care Teams Automobile Insurance Claim Examiner Relationship Specialty Start Date End Date Castro Ghotra MD PCP - External Primary Family Practice 10/25/22 [address] [facility] [place] [address] Angelika Thomas, PCP - General Internal Medicine 11/09/22 [facility] [address]
--- OUTSIDE RECORDS SUMMARY | 2022-11-26 18:33 | XMS REPORT | Continuity of Care Document ---
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 [facility] e Immunization Name Name Influenza Hd 2022-05-31 Completed [facility] ge of 00:00:00 Medicine Influenza Hd 2022-05-31 Completed [facility] ge of 00:00:00 Medicine Influenza Split 2022-05-31 Completed [facility] Dose 00:00:00 Emily morton [facility] IM Pfizer SARS-CoV-2 2021-12-22 Completed [facility] of Vaccination 00:00:00 Medicine Pfizer SARS-CoV-2 2021-12-22 Completed [facility] of Vaccination 00:00:00 Medicine Vital Signs Vital Name Observation Time Observation Value Comments Source Systolic blood 2022-10-22 19:48:00 131 mm[Hg] [facility] Medicine Diastolic blood 2022-10-22 19:48:00 78 mm[Hg] [facility] Medicine Heart rate 2022-10-22 19:48:00 100 /min [facility] Respiratory rate 2022-10-22 19:48:00 16 /min [facility] Body height 2022-10-22 19:48:00 182.9 cm [facility] Body weight 2022-10-22 19:48:00 79.379 kg [facility] BMI 2022-10-22 19:48:00 23.73 kg/m2 [facility] Systolic blood 2022-08-31 14:32:00 133 mm[Hg] [facility] Medicine Diastolic blood 2022-08-31 14:32:00 88 mm[Hg] [facility] Medicine Heart rate 2022-08-31 14:32:00 90 /min [facility] Respiratory rate 2022-08-31 14:32:00 16 /min [facility] Body height 2022-08-31 14:32:00 182.9 cm [facility] Body weight 2022-08-31 14:32:00 79.379 kg [facility] Medicine BMI 2022-08-31 14:32:00 23.73 kg/m2 [facility] Medicine Systolic blood 2022-02-01 18:00:00 109 mm[Hg] [facility] of pressure Medicine Diastolic blood 2022-02-01 18:00:00 68 mm[Hg] [facility] pressure Medicine Heart rate 2022-02-01 18:00:00 87 /min [facility] Respiratory rate 2022-02-01 18:00:00 17 /min [facility] Body height 2022-02-01 18:00:00 182.9 cm [facility] Body weight 2022-02-01 18:00:00 81.647 kg [facility] BMI 2022-02-01 18:00:00 24.41 kg/m2 [facility] Systolic blood 2021-09-25 17:24:00 158 mm[Hg] [facility] Medicine Diastolic blood 2021-09-25 17:24:00 93 mm[Hg] [facility] Medicine Heart rate 2021-09-25 17:24:00 86 /min [facility] Body temperature 2021-09-25 17:24:00 36.61 Bushra [facility] Respiratory rate 2021-09-25 17:24:00 15 /min [facility] Body height 2021-09-25 17:24:00 182.9 cm [facility] Body weight 2021-09-25 17:24:00 86.637 kg [facility] BMI 2021-09-25 17:24:00 25[facility]90 [facility] Oxygen saturation in 2021-09-25 17:24:00 99 /min [facility] Arterial blood by Medicine Pulse oximetry Systolic blood 2021-09-25 16:30:00 135 mm[Hg] [facility] pressure Medicine Diastolic blood 2021-09-25 16:30:00 82 mm[Hg] [facility] pressure Medicine Heart rate 2021-09-25 16:30:00 86 /min [facility] Respiratory rate 2021-09-25 16:30:00 16 /min [facility] Body height 2021-09-25 16:30:00 182.9 cm [facility] Body weight 2021-09-25 16:30:00 86.637 kg [facility] BMI 2021-09-25 16:30:00 25.90 kg/m2 [facility] Oxygen saturation in 2021-09-25 16:30:00 96 /min [facility] Arterial blood by [facility] Pulse oximetry Body weight 2022-11-26 18:13:00 79.9 kg [facility] [place] [facility] BMI 2022-11-26 18:13:00 25.08 kg/m2 [facility] Systolic blood 2022-11-20 19:35:00 130 mm[Hg] [facility] pressure [facility] Diastolic blood 2022-11-20 19:35:00 96 mm[Hg] [facility]ive [facility]ity of pressure [facility] Heart rate 2022-11-20 19:35:00 104 /min [facility] [place] [facility] Respiratory rate 2022-11-20 19:35:00 16 /min Univ ers[facility] Oxygen saturation in 2022-11-20 19:35:00 100 /min [facility] of Arterial blood by Emily [facility] Pulse oximetry [facility] Body temperature 2022-11-20 19:20:00 36.5 Bushra [facility] Body height 2022-11-14 17:06:12 178.5 cm Universi ty [facility] Systolic blood 2022-05-21 15:11:00 152 mm[Hg] [facility] Diastolic blood 2022-05-21 15:11:00 88 mm[Hg] [facility] pressure Heart rate 2022-05-21 15:11:00 81 /min [facility] Body temperature 2022-05-21 15:11:00 36 Bushra [facility] Procedures Procedure Date / Time Performing Clinician Source Performed MRI BRAIN W WO CONTRAST 2022-11-26 22:43:17 Doug Morrison [facility] PETCT INITIAL TREATMENT 2022-11-26 19:38:04 Doug Morrison [facility] STRATEGY [facility] NGS BLOOD CONTROL 2022-11-20 20:18:00 [facility] HP MOLECULAR BLOOD 2022-11-20 19:49:00 [facility] COLLECTION [facility] AP IHC PD-L1 MATERIAL 2022-11-20 18:52:12 [facility] REQUEST [facility] AP EGFR MUTATION 2022-11-20 18:52:12 [facility] MATERIAL REQUEST [facility] AP EML4/ALK FUSION 2022-11-20 18:52:12 [facility] ANALYSIS MATERIAL REQUEST [facility] JAMAR CASTRO KRAS MUTATION 2022-11-20 18:52:12 [facility] MATERIAL REQUEST [facility] CYTOLOGY IMAGE-GUIDED FNA 2022-11-20 18:09:00 Ara Galeana [facility] [place] INTERPRETATION [facility] CYTOLOGY IMAGE-GUIDED FNA 2022-11-20 18:05:00 Ara Galeana [facility] [place] INTERPRETATION [facility] CYTOLOGY IMAGE-GUIDED FNA 2022-11-20 18:00:00 Ara Galeana [facility] [place] INTERPRETATION [facility] CYTOLOGY IMAGE-GUIDED FNA 2022-11-20 17:57:00 Ara Galeana [facility] [place] INTERPRETATION [facility] CYTOLOGY IMAGE-GUIDED FNA 2022-11-20 17:53:00 Ara Galeana [facility] [place] INTERPRETATION [facility] BRONCHOSCOPY WITH EBUS 2022-11-20 17:25:00 Ara Galeana [facility] PERIPHERAL LESION-RADIAL MD [facility] Cancer PROBE [place] BRONCHOSCOPY WITH EBUS 3 OR 2022-11-20 17:25:00 [facility] MORE NODES [facility] COVID-19 (SARS-COV-2) 2022-11-16 19:34:00 Ara Galeana [facility] PCR-ASYMPTOMATIC [facility] HEPATITIS C VIRUS ANTIBODY 2022-11-14 18:47:00 Cyndi Brady [facility] HEPATIC FUNCTION PANEL 2022-11-14 18:47:00 Cyndi Brady [facility] ALPHA FETOPROTEIN TUMOR 2022-11-14 18:47:00 [facility] SERUM CREATININE 2022-11-14 18:47:00 Cyndi Brady [facility] .GLOMERULAR FILTRATION RATE 2022-11-14 18:47:00 Obie Brady [facility] ALBUMIN LEVEL 2022-11-14 18:47:00 [facility] ALKALINE PHOSPHATASE 2022-11-14 18:47:00 Cyndi Brady [facility] ALANINE AMINOTRANSFERASE 2022-11-14 18:47:00 Cyndi Brady [facility] ASPARTATE AMINOTRANSFERASE 2022-11-14 18:47:00 Cyndi Brady [facility] TOTAL PROTEIN 2022-11-14 18:47:00 Cyndi Brady [facility] FRACTIONATED BILIRUBIN 2022-11-14 18:47:00 Cyndi Brady [facility] Results CBC 2022-11-14 18:47:00 Cyndi Brady [facility] MANUAL DIFFERENTIAL 2022-11-14 18:47:00 Cyndi Brady [facility] ELECTROLYTE PANEL 2022-11-14 18:47:00 Cyndi Brady [facility] BLOOD UREA NITROGEN 2022-11-14 18:47:00 Cyndi Brady [facility] SERUM CREATININE 2022-11-14 18:47:00 Cyndi Brady [facility] GLUCOSE, RANDOM 2022-11-14 18:47:00 Jose Antonio [facility] CALCIUM LEVEL TOTAL 2022-11-14 18:47:00 Cyndi Brady [facility] PHOSPHORUS LEVEL 2022-11-14 18:47:00 Jose Antonio [facility] MAGNESIUM LEVEL 2022-11-14 18:47:00 Jose Antonio [facility] LACTATE DEHYDROGENASE 2022-11-14 18:47:00 Cyndi Brady [facility] PROTHROMBIN TIME 2022-11-14 18:47:00 Cyndi Brady [facility] COMPLETE BLOOD COUNT W/ 2022-11-14 18:47:00 Cyn[facility] DIFFERENTIAL [facility] APTT 2022-11-14 18:47:00 Jose Antonio [facility] EKG, 12-LEAD (SCHEDULED) 2022-11-14 00:00:00 [facility] 2022-10-30 02:16:00 Angelika Thomas [facility] CT CHEST WITHOUT IV 2022-10-29 11:30:00 RIEVRA [facility] CONTRAST [facility] ([facility]) DIAG \\T\\ IMAGING 2022-10-22 12:39:03 [facility] OSI CHEST 2022-09-03 17:53:00 Angelika Thomas [facility] CT ABDOMEN/PELVIS WITH IV 2022-03-26 07:15:[address] [facility] POCT-CREATININE 2022-03-26 06:57:[address] [facility] PSA ULTRASENSITIVE 2022-02-01 13:29:17 [facility] Medicine TESTOSTERONE 2022-02-01 13:29:17 [facility] ELECTROCARDIOGRAM COMPLETE 2021-09-25 17:02:03 Jason Fofana [facility] TREADMILL, NO IMAGING 2021-09-25 08:45:00 [facility] Plan of Care Planned Activity Planned Date Details Comments Source Future Scheduled 2022-11-26 COVID-19 Vaccination Uni versity of Test 15:17:34 (4 - Booster for [place] MD Pfizer series) [code [facility] = COVID-19 Center Vaccination (4 - Booster for Pfizer series)] Future Scheduled 2022-11-26 Hepatitis C screening [facility] 07:58:43 (procedure) [code = Hospital 045239632] Future Scheduled 2022-11-26 COLONOSCOPY SCREENING [facility] 07:58:43 [code = COLONOSCOPY Hospital SCREENING] Future Scheduled 2022-11-26 SHINGLES VACCINES (1 [facility] 07:58:43 of 2) [code = Hospital SHINGLES VACCINES (1 of 2)] Future Scheduled 2022-11-26 65+ PNEUMOCOCCAL [facility] Test 07:58:43 VACCINE (1 - PCV) Hospital [code = 65+ PNEUMOCOCCAL VACCINE (1 - PCV)] Future Scheduled 2022-11-26 COVID-19 VACCINE (3 - [facility] 07:58:43 Booster for Pfizer Hospital series) [code = COVID-19 VACCINE (3 - Booster for Pfizer series)] Future Scheduled 2022-11-26 INFLUENZA VACCINE Method ist Test 07:58:43 [code = INFLUENZA Hospital VACCINE] Future Scheduled 2022-10-22 COMPLETE PFT WITH 1 Occurrences [employer] Test 14:11:16 BRONCHODILATOR [code starting of Medi cine = 24284] 10/22/2022 until 10/22/2023 Future Scheduled 2022-10-22 CT CHEST WO CONTRAST 1 Occurrences [employer] Test 14:11:16 [code = 11348-5] starting of Medicine 10/22/2022 until 10/22/2023 Future Scheduled 2022-10-22 CT CHEST HIGH 1 Occurrences [facility] Test 14:11:16 RESOLUTION W CONTRAST starting of Med icine [code = 24771] 10/22/2022 until 10/22/2023 Future Scheduled 2022-10-22 Screening for [facility] Test 13:48:40 malignant neoplasm of of Med icine colon (procedure) [code = 429975809] Future Scheduled 2022-10-22 TETANUS SHOT (ADULT) [employer] Test 13:48:40 [code = TETANUS SHOT of Medi cine (ADULT)] Future Scheduled 2022-10-22 Hepatitis C screening [facility] [employer] Test 13:48:40 (procedure) [code = of Medic ine 092975010] Future Scheduled 2022-10-22 ZOSTER VACCINE (1 of [facility] Test 13:48:40 2) [code = ZOSTER of Medicin e VACCINE (1 of 2)] Future Scheduled 2022-10-22 Abdominal aortic [facility] Test 13:48:40 aneurysm screening of Medici ne (procedure) [code = 209515036] Future Scheduled 2022-10-22 Pneumococcal 65+ (1 - [employer] Test 13:48:40 PCV) [code = of Medicine Pneumococcal 65+ (1 - PCV)] Future Scheduled 2022-10-22 Medicare Awv [facility] [place] [employer] Test 13:48:40 (Initial) [code = of Medicin e Medicare Awv (Initial)] Future Scheduled 2022-10-22 COVID-19 Vaccine (4 - [employer] Test 13:48:40 Booster for Pfizer of Medici ne series) [code = COVID-19 Vaccine (4 - Booster for Pfizer series)] Future Scheduled 2022-10-22 Fall Screen [code = [employer] Test 13:48:40 Fall Screen] of Medicine Future Scheduled 2022-09-[address] [facility] Test 00:00:00 (12+) [code = Medical Center DEPRESSION SCREENING (12+)] Future Scheduled 2022-09-30 FALLS RISK SCREENING [facility] Test 00:00:00 [code = FALLS RISK Medical C enter SCREENING] Future Scheduled 2022-09-[address] [facility] Test 00:00:00 (12+) [code = Medical Center DEPRESSION SCREENING (12+)] Future Scheduled 2022-09-30 FALLS RISK SCREENING [facility] Test 00:00:00 [code = FALLS RISK Medical C enter SCREENING] Future Scheduled 2022-09-[address] [facility] Test 00:00:00 (WELCOME TO MEDICARE) Medica l Center [code = Medicare IPPE (WELCOME TO MEDICARE)] Future Scheduled 2022-08-31 XR CHEST PA AND 1 Occurrences [facility] Test 09:42:13 LATERAL [code = starting of Medicine 04354-3] 08/31/2022 until 08/31/2023 Future Scheduled 2022-08-31 Screening for [facility] Test 08:32:56 malignant neoplasm of of Med icine colon (procedure) [code = 851694951] Future Scheduled 2022-08-31 TETANUS SHOT (ADULT) [employer] Test 08:32:56 [code = TETANUS SHOT of Medi cine (ADULT)] Future Scheduled 2022-08-31 Hepatitis C screening [employer] Test 08:32:56 (procedure) [code = of Medic ine 941490001] Future Scheduled 2022-08-31 ZOSTER VACCINE (1 of [employer] Test 08:32:56 2) [code = ZOSTER of Medicin e VACCINE (1 of 2)] Future Scheduled 2022-08-31 Abdominal aortic [facility] Test 08:32:56 aneurysm screening of Medici ne (procedure) [code = 584184788] Future Scheduled 2022-08-31 Pneumococcal 65+ (1 - [employer] Test 08:32:56 PCV) [code = of Medicine Pneumococcal 65+ (1 - PCV)] Future Scheduled 2022-08-31 MEDICARE IPPE [facility] Test 08:32:56 (WELCOME TO MEDICARE) of Med icine [code = MEDICARE IPPE (WELCOME TO MEDICARE)] Future Scheduled 2022-08-31 COVID-19 Vaccine (4 - [employer] Test 08:32:56 Booster for Pfizer of Medici ne series) [code = COVID-19 Vaccine (4 - Booster for Pfizer series)] Future Scheduled 2022-08-31 FALL SCREEN [code = [employer] Test 08:32:56 FALL SCREEN] of Medicine Future Scheduled 2022-05-[address] [facility] Test 00:00:00 (#1) [code = Medical Center INFLUENZA VACCINE (#1)] Future Scheduled 2022-05-[address] [facility] Test 00:00:00 (#1) [code = Medical Center INFLUENZA VACCINE (#1)] Future Scheduled 2022-05-[address] [facility] Test 00:00:00 (#1) [code = Medical Center INFLUENZA VACCINE (#1)] Future Scheduled 2022-04-23 COVID-19 VACCINE (4 - [facility] Test 00:00:00 Booster for Pfizer Medical C enter series) [code = COVID-19 VACCINE (4 - Booster for Pfizer series)] Future Scheduled 2022-02-06 Screening for [facility] Test 09:40:02 malignant neoplasm of of Med icine colon (procedure) [code = 480656076] Future Scheduled 2022-02-06 TETANUS SHOT (ADULT) [employer] Test 09:40:02 [code = TETANUS SHOT of Medi cine (ADULT)] Future Scheduled 2022-02-06 Hepatitis C screening [employer] Test 09:40:02 (procedure) [code = of Medic ine 095582270] Future Scheduled 2022-02-06 ZOSTER VACCINE (1 of [employer] Test 09:40:02 2) [code = ZOSTER of Medicin e VACCINE (1 of 2)] Future Scheduled 2022-02-06 Abdominal aortic [facility] [employer] Test 09:40:02 aneurysm screening of Medici ne (procedure) [code = 235898375] Future Scheduled 2022-02-06 Pneumococcal 65+ (1 [employer] Test 09:40:02 of 1 - PPSV23) [code of Medi cine = Pneumococcal 65+ (1 of 1 - PPSV23)] Future Scheduled 2022-02-06 COVID-19 Vaccine (3 - [employer] Test 09:40:02 Booster for Pfizer of Medici ne series) [code = COVID-19 Vaccine (3 - Booster for Pfizer series)] Future Scheduled 2022-02-06 FLU VACCINE > 6 [facility] C [facility] Test 09:40:02 MONTHS [code = FLU of Medici ne VACCINE > 6 MONTHS] Future Scheduled 2022-02-06 FALL SCREEN [code = [employer] Test 09:40:02 FALL SCREEN] of Medicine Future Scheduled 2022-02-01 PSA ULTRASENSITIVE Ordered: [employer] Test 13:29:17 [code = 15589-6] 02/01/2022 of Medicine Future Scheduled 2022-02-01 TESTOSTERONE [code = Ordered: [employer] Test 13:29:17 2986-8] 02/01/2022 of Medicine Future Scheduled 2021-09-[address] [facility] Test 00:00:00 (12+) [code = Medical Center DEPRESSION SCREENING (12+)] Future Scheduled 2021-09-30 FALLS RISK SCREENING [facility] Test 00:00:00 [code = FALLS RISK Medical C enter SCREENING] Future Scheduled 2021-09-[address] [facility] Test 00:00:00 (12+) [code = Medical Center DEPRESSION SCREENING (12+)] Future Scheduled 2021-09-30 FALLS RISK SCREENING [facility] Test 00:00:00 [code = FALLS RISK Medical C enter SCREENING] Future Scheduled 2021-09-25 MRI LUMBAR SPINE WO 1 Occurrences [employer] Test 11:55:12 CONTRAST [code = starting of Medicine 02013-2] 09/25/2021 until 09/25/2022 Future Scheduled 2021-09-25 Screening for [facility] Test 11:25:08 malignant neoplasm of of Med icine colon (procedure) [code = 721985577] Future Scheduled 2021-09-25 TETANUS SHOT (ADULT) [employer] Test 11:25:08 [code = TETANUS SHOT of Medi cine (ADULT)] Future Scheduled 2021-09-25 BMI FOLLOW UP PLAN [facility] Test 11:25:08 [code = BMI FOLLOW UP of Med icine PLAN] Future Scheduled 2021-09-25 Hepatitis C screening [employer] Test 11:25:08 (procedure) [code = of Medic ine 535916446] Future Scheduled 2021-09-25 ZOSTER VACCINE (1 of [employer] Test 11:25:08 2) [code = ZOSTER of Medicin e VACCINE (1 of 2)] Future Scheduled 2021-09-25 MEDICARE AWV [facility] [place] [employer] Test 11:25:08 (Initial) [code = of Medicin e MEDICARE AWV (Initial)] Future Scheduled 2021-09-25 Abdominal aortic [facility] Test 11:25:08 aneurysm screening of Medici ne (procedure) [code = 987533779] Future Scheduled 2021-09-25 FALL SCREEN [code = [employer] Test 11:25:08 FALL SCREEN] of Medicine Future Scheduled 2021-09-25 Pneumococcal 65+ (1 [employer] Test 11:25:08 of 1 - PPSV23) [code of Medi cine = Pneumococcal 65+ (1 of 1 - PPSV23)] Future Scheduled 2021-09-25 FLU VACCINE > 6 [facility] Test 11:25:08 MONTHS [code = FLU of Medici ne VACCINE > 6 MONTHS] Future Scheduled 2021-09-25 COVID-19 Vaccine (3 - [employer] Test 11:25:08 Booster for Pfizer of Medici ne series) [code = COVID-19 Vaccine (3 - Booster for Pfizer series)] Future Scheduled 2021-09-25 Screening for [facility] Test 11:25:08 malignant neoplasm of of Med icine colon (procedure) [code = 703842256] Future Scheduled 2021-09-25 TETANUS SHOT (ADULT) [employer] Test 11:25:08 [code = TETANUS SHOT of Medi cine (ADULT)] Future Scheduled 2021-09-25 BMI FOLLOW UP PLAN [facility] Test 11:25:08 [code = BMI FOLLOW UP of Med icine PLAN] Future Scheduled 2021-09-25 Hepatitis C screening [employer] Test 11:25:08 (procedure) [code = of Medic ine 051160454] Future Scheduled 2021-09-25 ZOSTER VACCINE (1 of [employer] Test 11:25:08 2) [code = ZOSTER of Medicin e VACCINE (1 of 2)] Future Scheduled 2021-09-25 MEDICARE AWV [facility] [place] [employer] Test 11:25:08 (Initial) [code = of Medicin e MEDICARE AWV (Initial)] Future Scheduled 2021-09-25 Abdominal aortic [facility] Test 11:25:08 aneurysm screening of Medici ne (procedure) [code = 080019396] Future Scheduled 2021-09-25 FALL SCREEN [code = [employer] Test 11:25:08 FALL SCREEN] of Medicine Future Scheduled 2021-09-25 Pneumococcal 65+ (1 [employer] Test 11:25:08 of 1 - PPSV23) [code of Medi cine = Pneumococcal 65+ (1 of 1 - PPSV23)] Future Scheduled 2021-09-25 FLU VACCINE > 6 [facility] C [facility] Test 11:25:08 MONTHS [code = FLU of Medici ne VACCINE > 6 MONTHS] Future Scheduled 2021-09-25 COVID-19 Vaccine (3 - [facility] [place] Test 11:25:08 Booster for Pfizer of Medici ne series) [code = COVID-19 Vaccine (3 - Booster for Pfizer series)] Diagnostic Test 2021-09-25 ECHO, COMPLETE [code Expected: [place] [facility] [place] Pending 00:00:00 = 15212] 09/25/2021, of Medicine Expires: 03/26/2022 Future Scheduled 2021-05-03 COVID-19 VACCINE (3 - [facility] 00:00:00 Booster for Pfizer Medical C enter series) [code = COVID-19 VACCINE (3 - Booster for Pfizer series)] Future Scheduled 2021-05-03 COVID-19 VACCINE (3 - [facility] Test 00:00:00 Booster for Pfizer Medical C enter series) [code = COVID-19 VACCINE (3 - Booster for Pfizer series)] Future Scheduled 2021-05-03 COVID-19 VACCINE (3 - [facility] Test 00:00:00 Booster for Pfizer Medical C enter series) [code = COVID-19 VACCINE (3 - Booster for Pfizer series)] Future Scheduled 2015-10-01 MEDICARE ANNUAL [facility] 00:[facility]:00 WELLNESS (YEAR 2 or Medical Center FIRST YEAR if no IPPE) [code = MEDICARE ANNUAL WELLNESS (YEAR 2 or FIRST YEAR if no IPPE)] Future Scheduled 2015-10-[address] [facility] 00:00:00 WELLNESS (YEAR 2 or Medical Center FIRST YEAR if no IPPE) [code = MEDICARE ANNUAL WELLNESS (YEAR 2 or FIRST YEAR if no IPPE)] Future Scheduled 2015-10-[address] [facility] 00:00:00 WELLNESS (YEAR 2 or Medical Center FIRST YEAR if no IPPE) [code = MEDICARE ANNUAL WELLNESS (YEAR 2 or FIRST YEAR if no IPPE)] Future Scheduled 2014 PNEUMOCOCCAL 65+ YRS [facility] 00:00:00 (1 - PCV) [code = Medical Ce nter PNEUMOCOCCAL 65+ YRS (1 - PCV)] Future Scheduled 2014 PNEUMOCOCCAL 65+ YRS [facility] 00:00:00 (1 - PCV) [code = Medical Ce nter PNEUMOCOCCAL 65+ YRS (1 - PCV)] Future Scheduled 2014 PNEUMOCOCCAL 65+ YRS [facility] 00:00:00 (1 - PCV) [code = Medical Ce nter PNEUMOCOCCAL 65+ YRS (1 - PCV)] Future Scheduled 1999 SHINGLES VACCINES ([address] [facility] 00:00:00 of 2) [code = Medical Center SHINGLES VACCINES (1 of 2)] Future Scheduled 1999 SHINGLES VACCINES ([address] [facility] 00:00:00 of 2) [code = Medical Center SHINGLES VACCINES (1 of 2)] Future Scheduled 1999 SHINGLES VACCINES ([address] [facility] 00:00:00 of 2) [code = Medical Center SHINGLES VACCINES (1 of 2)] Future Scheduled 1999 SHINGLES VACCINES ([address] [facility] 00:00:00 of 2) [code = Medical Center SHINGLES VACCINES (1 of 2)] Future Scheduled 1968 DTAP/TDAP/TD VACCINES [facility] 00:00:00 (1 - Tdap) [code = Medical C enter DTAP/TDAP/TD VACCINES (1 - Tdap)] Future Scheduled 1968 DTAP/TDAP/TD VACCINES [facility] 00:00:00 (1 - Tdap) [code = Medical C enter DTAP/TDAP/TD VACCINES (1 - Tdap)] Future Scheduled 1968 DTAP/TDAP/TD VACCINES [facility] 00:00:00 (1 - Tdap) [code = Medical C enter DTAP/TDAP/TD VACCINES (1 - Tdap)] Future Scheduled 1968 DTAP/TDAP/TD VACCINES [facility] 00:00:00 (1 - Tdap) [code = Medical C enter DTAP/TDAP/TD VACCINES (1 - Tdap)] Future Scheduled 1967 HEPATITIS C [facility]CRE[facility]ING [facility] 00:00:00 [code = HEPATITIS C Medical Center SCREENING] Future Scheduled 1967 HEPATITIS C [facility]ING [facility]:00 [code = HEPATITIS C Medical Center SCREENING] Future Scheduled 1967 HEPATITIS C [facility]ING [facility] 00:00:00 [code = HEPATITIS C Medical Center SCREENING] Future Scheduled 1967 HEPATITIS C [facility]CRE[facility]ING [facility] 00:00:00 [code = HEPATITIS C Medical Center SCREENING] Future Scheduled [address] [facility] 00:00:00 Counseling and Medical Cente r Screening (12+) [code = Tobacco Cessation Counseling and Screening (12+)] Future Scheduled [address] [facility] 00:00:00 Counseling and Medical Cente r Screening (12+) [code = Tobacco Cessation Counseling and Screening (12+)] Future Scheduled [address] [facility] 00:00:00 Counseling and Medical Cente r Screening (12+) [code = Tobacco Cessation Counseling and Screening (12+)] Future Scheduled [address] [facility] 00:00:00 Counseling and Medical Cente r Screening (12+) [code = Tobacco Cessation Counseling and Screening (12+)] Future Scheduled 1955 PNEUMOCOCCAL 65+ YRS [facility] 00:00:00 (1 - PCV) [code = Medical Ce nter PNEUMOCOCCAL 65+ YRS (1 - PCV)] Future Scheduled [address] [facility] 00:00:00 (combo) [code = CT Medical C enter Colonography (combo)] Future Scheduled [address] [facility]00 malignant neoplasm of Medica l Center colon (procedure) [code = 030863957] Future Scheduled [address] [facility] 00:[facility]:00 malignant neoplasm of [facility]ica [facility] Center colon (procedure) [code = 774741739] Future Scheduled [address] [facility] 00:00:00 malignant neoplasm of [facility]ica [facility] Center colon (procedure) [code = 846128034] Future Scheduled [address] [facility] 00:00:00 malignant neoplasm of [facility]ica [facility] Center colon (procedure) [code = 063692749] Future Scheduled 1949 Sigmoidoscopy [code = [facility] S[facility]oscopy] Medical Cente r Future Scheduled [address] [facility] 00:00:00 (combo) [code = CT Medical C enter Colonography (combo)] Future Scheduled [address] [facility] 00:00:00 malignant neoplasm of [facility]ica [facility] Center colon (procedure) [code = 017771129] Future Scheduled [address] [facility] 00:00:00 malignant neoplasm of [facility]ica [facility] Center colon (procedure) [code = 593995480] Future Scheduled [address] [facility] 00:00:00 malignant neoplasm of [facility]ica [facility] Center colon (procedure) [code = 805492632] Future Scheduled [address] [facility] 00:00:00 malignant neoplasm of [facility]ica [facility] Center colon (procedure) [code = 969402441] Future Scheduled 1949 Sigmoidoscopy [code [facility] S[facility]oscopy] Medical Cente r Future Scheduled [address] [facility] 00:00:00 (combo) [code = CT Medical C enter Colonography (combo)] Future Scheduled [address] [facility] 00:00:00 malignant neoplasm of Medica l Center colon (procedure) [code = 097257771] Future Scheduled [address] [facility] 00:00:00 malignant neoplasm of Medica l Center colon (procedure) [code = 898855571] Future Scheduled [address] [facility] 00:00:00 malignant neoplasm of Medica l Center colon (procedure) [code = 174657742] Future Scheduled [address] [facility] 00:00:00 malignant neoplasm of Medica l Center colon (procedure) [code = 449393484] Future Scheduled 1949 Sigmoidoscopy [code = [facility] S[facility]oidoscopy] Medical Cente r Future Scheduled [address] [facility] 00:00:00 (combo) [code = CT Medical C enter Colonography (combo)] Future Scheduled [address] [facility] 00:00:00 malignant neoplasm of Medica l Center colon (procedure) [code = 814748950] Future Scheduled [address] [facility] 00:00:00 malignant neoplasm of Medica l Center colon (procedure) [code = 973724015] Future Scheduled [address] [facility] 00:00:00 malignant neoplasm of Medica l Center colon (procedure) [code = 657909647] Future Scheduled [address] [facility] 00:00:00 malignant neoplasm of Medica l Center colon (procedure) [code = 852169187] Future Scheduled 1949 Sigmoidoscopy [code [facility] Sigmoidoscopy] Medical Cente r Encounters Start End Encounter Admission Attending Care Care Encounter Source Date/Time Date/Time Type Type Clinicians Facility Department ID 2022-11-12 Outpatient [facility] Surgery [id number] [facility] 12:37:00 , [place] 2022-11-01 Outpatient SYSTEM, HELEN CERVANTES [id number] 16:37:03 PROVIDER Rommel larose 2022-11-26 2022-11-26 Ancillary Rust, 1.2.840.1 [id number] [facility] 15:00:00 16:45:00 Procedure Horiana 03804.1.1 it y of 3.412.2.7 [place] .3.847112 MD gN8 [facility] larose [facility] 2022-11-26 2022-11-26 Ancillary Rust, 1.2.840.1 [id number] Univers 12:00:00 14:30:00 Procedure Horiana 84143.1.1 it y of 3.412.2.7 [place] .3.359653 MD Margarito larose [facility] 2022-11-26 2022-11-26 Outpatient JEAN CARLOS GALEANA MDA MDA [id number] 12:01:04 12:01:04 ARA larose 2022-11-26 2022-11-26 Outpatient HELEN GALEANA MDA [id number] 12:00:25 12:00:25 ARA larose 2022-11-26 2022-11-26 Telephone Tamiko, 1.2.840.1 [id number] [facility] 00:00:00 00:00:00 Doug Langston 49894.1.1 it y of 3.412.2.7 [place] .3.014555 MD Ng8 [facility] 2022-11-26 2022-11-26 Travel 1.2.840.1 1.2.800.846 [id number] [facility] 00:00:00 00:00:00 46675.1.1 350.1.13.41 ity of 3.412.2.7 [place].698 [place].6101[place] 084.8 .8 [facility] 2022-11-22 2022-11-22 Orders Parrish, 1.2.840.1 [id number] [facility] 00:00:00 00:00:00 Only Jena 06341.1.1 ity of 3.412.2.7 [place] .3.528690 MD Ng8 [facility] 2022-11-20 2022-11-20 Outpatient [facility] [id number] MD 14:11:46 23:59:00 ARA Rommelmirna larose 2022-11-20 2022-11-20 [facility], 1.2.840.1 [id number] Univers 14:11:46 23:59:00 Encounter Michellesamantha 82813.1.1 it y of 3.412.2.7 [place] .3.408402 MD Ng8 [facility] 2022-11-20 2022-11-20 Outpatient [facility] Pul Med [id number] MD 07:46:00 13:45:00 HORIANA Rommel o n 2022-11-20 2022-11-20 [facility], 1.2.840.1 [id number] Univers 07:46:00 13:45:00 Encounter Michellesamantha 23632.1.1 it y of 3.412.2.7 [place] .3.002033 MD Ng8 [facility] 2022-11-20 2022-11-20 Anesthesia Lloyd Hu 1.2.840.1 [id number] Univers 11:25:00 12:49:00 Event Walter Briones Santos 04463.1.1 ity of 3.412.2.7 [place] .3.284996 MD Ng8 [facility] 2022-11-20 2022-11-20 Surgery Grosu, 1.2.840.1 [id number] [facility] 10:00:00 12:00:00 Horiana 32592.1.1 ity of 3.412.2.7 [place] .3.212900 MD Ng8 [facility] 2022-11-20 2022-11-20 Orders Bashour, 1.2.840.1 [id number] Univers 00:00:00 00:00:00 Only Doug Langston 68356.1.1 it y of 3.412.2.7 [place] .3.433834 MD Ng8 [facility] 2022-11-20 2022-11-20 Travel 1.2.840.1 1.2.041.379 [id number] [id number] Univers 00:00:00 00:00:00 66508.1.1 350.1.13.41 ity of 3.412.2.7 [place]3.698 [place].5095[place] 084.8 MD Ng8 [facility] 2022-11-19 2022-11-19 Anesthesia Hickman, 1.2.840.1 [id number] Univers 23:59:59 23:59:59 Event Kelsey Godfrey 25927.1.1 ity of 3.412.2.7 [place] .3.107393 MD Pimentel [facility] 2022-11-19 2022-11-19 POVIRGILIO Thomas, 1.2.840.1 [id number] Univers 14:30:00 15:00:00 Elsa Barry 76012.1.1 ity of ts 3.412.2.7 [place] .3.786017 MD Pimentel [facility] 2022-11-19 2022-11-19 Outpatient EL SUZANNA, HELEN MDA [id number] 08:27:01 08:27:01 ANGELIKA larose 2022-11-16 2022-11-16 Consult Felisa, 1.2.840.1 [id number] [facility] 14:30:00 15:33:04 Nova 46157.1.1 ity of 3.412.2.7 [place] .3.824169 .8 [facility] 2022-11-16 2022-11-16 Outpatient JEAN CARLOS [facility] [id number] 13:53:17 15:33:04 NOVA larose 2022-11-16 2022-11-16 Clinical Donna Pozo 1.2.840.2 [id number] [facility] 13:45:00 13:45:00 Support Marleny Gama 61847.1.1 ity of 3.412.2.7 [place] .3.573088 MD [facility] 2022-11-16 2022-11-16 Outpatient JEAN CARLOS POZO MDA [facility] [id number] 13:28:11 13:43:36 DONNA larose 2022-11-16 2022-11-16 Travel 1.2.840.1 1.2.910.143 [id number] [id number] [facility] 00:00:00 00:00:00 24153.1.1 350.1.13.41 ity of 3.412.2.7 [place]3.698 [place].630116 084.8 MD [facility] 2022-11-15 2022-11-15 Prep for Tina 1.2.840.1 [id number] [facility] 00:00:00 00:00:00 Surgery Donna 57660.1.1 ity of 3.412.2.7 [place] .3.360954 MD [facility] 2022-11-14 2022-11-14 Outpatient HELEN BRADY MDA [id number] 12:35:31 23:59:00 CYNDI larose 2022-11-14 2022[facility]14 [facility]1 [id number] Univers 12:35:31 23:59:00 Encounter Cyndi 63607.1.1 it y of 3.412.2.7 [place] .3.562542 .8 [facility] 2022-11-14 2022-11-14 Outpatient EL JOSE ANTONIO, [facility] MDA 1102 [id number] 12:34:58 12:34:58 CYNDI larose 2022-11-14 2022-11-14 [facility] 1.2.840.1 [id number] [facility] 12:34:58 12:34:58 Encounter Cyndi 01726.1.1 it y of 3.412.2.7 [place] .3.350108 .8 [facility] 2022-11-14 2022-11-14 Office Mabel Case 1.2.840.1 [id number] Univers 11:00:00 12:31:08 Visit Angelika Thomas 36460.1.1 ity of 3.412.2.7 [place] .3.926997 .8 [facility] 2022-11-14 2022-11-14 Outpatient [facility] HELEN [id number] 10:30:21 12:31:08 MABEL larose 2022-11-14 2022-11-14 Outpatient EL ILIJULIANACU, MDA HELEN [id number] 10:24:47 10:25:00 MABEL Rommel larose 2022-11-14 2022-11-14 NPR Ilimary, 1.2.840.1 [id number] [facility] 10:00:00 10:25:00 Mabel 90404.1.1 ity of 3.412.2.7 [place] .3.145152 .8 [facility] 2022-11-14 2022-11-14 Travel 1.2.840.1 1.2.969.752 [id number] [facility] 00:00:00 00:00:00 30126.1.1 350.1.13.41 ity of 3.412.2.7 [place]3.698 [place]3.439821 084.8 .8 [facility] 2022-11-13 2022-11-13 Ancillary Thomas, 1.2.840.1 [id number] Univers 20:00:00 20:05:00 Procedure Angelika P 87482.1.1 i ty of 3.412.2.7 [place] .3.378837 .8 [facility] 2022-11-13 2022-11-13 Outpatient THOMAS, MDA MDA [id number] 19:58:57 19:58:57 ANGELIKA larose 2022-11-13 2022-11-13 Orders Jose Antonio, 1.2.840.1 [id number] Univers 00:00:00 00:00:00 Only Latira 15230.1.1 ity of 3.412.2.7 [place] .3.586240 MD gN8 [facility] 2022-11-12 2022-11-12 Ancillary Thomas, 1.2.840.1 [id number] Univers 20:00:00 20:05:00 Procedure Angelika P 88866.1.1 i ty of 3.412.2.7 [place] .3.205340 MD Ng8 [facility] 2022-11-12 2022-11-12 Outpatient THOMAS, MDA MDA [id number] 11:51:49 11:51:49 ANGELIKA larose 2022-10-29 2022-10-29 Outpatient [facility] [id number] [facility] 10:26:25 23:59:00 SHANNA 2022-10-29 2022-10-29 [facility] [id number] [facility] 10:00:00 23:59:00 Didier [facility]es [facility] 2022-10-25 2022-10-25 Travel 1.2.840.1 1.2.796.450 [id number] Univers 00:00:00 00:00:00 72207.1.1 350.1.13.41 ity of 3.412.2.7 [place].698 [place]3.2289[place] 084.8 .8 [facility] 2022-10-23 2022-10-23 Outside [facility] [id number] 00:[facility] 00:00:00 Orders , [facility] 2022-10-22 2022-10-22 Office [facility] 1.2.840.114 10 [id number] [facility] 12:39:03 16:29:17 Visit , AMBULATOR 350.1.13.21 College MURALIDHELIZABETH Y 0.2.7.2.686 o f [id number] Medi britni 380 e 2022-10-22 2022-10-22 Orders [facility] [id number] [facility] [address] 00:00:00 00:00:00 Only , [facility] 2022-08-31 2022-08-31 Office MIKHAIL Martin 1.2.840.114 [id number] [facility] 08:40:00 09:20:00 Visit Rodrigo AMBULATOR 350.1.13.21 College Y 0.2.7.2.686 of [id number] [facility] britni 315 e 2022-05-21 2022-05-21 Office Amee 1.2.840.1 [id number] [facility]i 10:30:00 14:27:35 Visit Irma Pretty 88747.1.[address] 3.430.2.7 Hospit a .3.773882 yumiko .8 2022-05-21 2022-05-21 Outpatient [facility]EE [facility] [id number] [place] 00:00:00 00:00:00 IRMA Breaux [facility] 2022-05-21 2022-05-21 Travel 1.2.840.1 1.2.555.618 2685 [id number] Methodi 00:00:00 00:00:[address] 3.430.2.7 0.2.7.3.698 Ho spita .3.543092 084.8 l .8 2022-03-26 2022-03-26 [facility] Sofiya Dayami [facility] [id number] [facility] 06:29:04 23:59:00 Encounter 1, [facility] Room [facility] 2022-03-26 2022-03-26 [facility] [id number] SLE 06:29:04 23:59:00 [facility] 2022-03-26 2022-03-26 [facility] [id number] 06:29:04 23:59[facility]00 [facility] 2022-03-20 2022-03-20 [facility] [id number] 00:[facility]00 00:00:00 Orders [facility] 2022-03-20 2022-03-20 Outside [facility] [id number] 00:00:00 00:00:00 Orders [facility] 2022-03-02 2022-03-02 Outpatient [facility] [id number] [facility] 15:10:26 15:10:26 [facility] e [facility] Medicin [facility] 2022-02-01 2022-02-01 Office SHORTY MACK 1.2.840.114 [id number] [facility] 12:27:54 12:27:54 Visit DAVID AMBULATOR 350.1.13.21 College Y 0.2.7.2.686 of [id number] Medi britni 300 e 2021-12-20 2021-12-20 Outpatient [facility] [id number] [facility] 12:06:30 14:26:14 Colleg e [facility] Medicin e 2021-11-21 2021-11-21 Outpatient [facility]EE [facility] [id number] [place] [address] 00:00:00 00:00:00 IRMA Aguiar [facility] 2021-10-19 2021-10-19 Outpatient [facility] [id number] [facility] 12:44:15 19:35:09 Carolynkermit e of Medicin e 2021-10-01 2021-10-01 Outpatient Tanvi [facility] [id number] Univers 10:45:00 10:54:53 LAYLA Pleitez ricky kang of [facility] 2021-09-25 2021-09-25 Office CHANEY MIKHAIL NgBekah 1.2.552.833 [id number] [facility] 11:20:03 16:14:56 Visit ALBERTO AMBULATOR 350.1.13.21 College Y 0.2.7.2.686 of [id number] Medi britni 805 e 2021-09-25 2021-09-25 Office FOFANAMIKHAIL 1.2.840.114 [id number] [facility] 07:19:35 14:08:00 Visit JASON AMBULATOR 350.1.13.21 College Y 0.2.7.2.686 of [id number] Medi britni 375 e 2021-09-25 2021-09-25 Outpatient AMIRAH [facility] [id number] [facility] 07:18:49 13:59:52 JASON Papito e of Medicin e 2021-08-08 2021-08-08 [facility] [id number] [place] 00:00:00 00:00:00 LEONIDES [address] 2021-07-25 2021-07-25 Outpatient [facility] [id number] [place] 00:00:00 00:00:00 ARNIE [address] 2021-07-13 2021-07-13 Outpatient [facility] [id number] [place] 00:00:00 00:00:00 ARNIE [address] 2021-07-13 2021-07-13 Outpatient [facility] [id number] [place] 00:00:00 00:00:00 ARNEI [address] Results Test Description Test Time Test Comments Results Result Comments Source Molecular Diagnostics Specimen Collection -FFPE 2022-11-23 1 9:52:14 Test Item Value Reference Range Interpretation Comme nts Molecular Diagnostics (Received) (test code = 8400) Yes Berhane Ap Link (test code = 93083) [id number] Block Number (Qualitative) (test code = 8193) A1 [facility] Request 2022-11-23 15:51:19 Test Item Value Reference Range Interpretation Comments Archived Material The test is to be (test code = 04271) performed on tissue from case [id number] The case report, slides, and blocks for the cited accession were retrieved from archives. The pathologist examined the candidate H&E slide and selected the block appropriate to the specifications of the ordered molecular analysis. Unstained slides and H&E slide were prepared and forwarded to Molecular Diagnostic Laboratory where the subject molecular test will be performed. Results will be reported separately. Pathologist Signature [facility] E[facility]/ALK Fusion Analysis Material [id number] 15:51:19 Test Item Value Reference Range Interpretation Comments Archived Material The test is to be (test code = 31815) performed on tissue from case [id number] The case report, slides, and blocks for the cited accession were retrieved from archives. The pathologist examined the candidate H&E slide and selected the block appropriate to the specifications of the ordered molecular analysis. Unstained slides and H&E slide were prepared and forwarded to [facility] where the subject molecular test will be performed. Results will be reported separately. Pathologist Signature [facility] EGFR Mutation Material Request 2022-11-23 15:51:18 Test Item Value Reference Range Interpretation Comments Archived Material The test is to be (test code = 42121) performed on tissue from case [id number] The case report, slides, and blocks for the cited accession were retrieved from archives. The pathologist examined the candidate H&E slide and selected the block appropriate to the specifications of the ordered molecular analysis. Unstained slides and H&E slide were prepared and forwarded to [facility] where the subject molecular test will be performed. Results will be reported separately. Pathologist Signature [facility]yt[facility] Image-Guided FNA [id number] 00:10:11 Test Item Value Reference Range Interpretation Comments Gross Description (test [id number] code = 5840499282) ReepwtJvLHIlnXRxF6Xu yksuRMrlPA6hTG0fsZjz kSKwaWTyHIKbSkWxc8ll s605rILsu6ttPXRMirek gCf0yMfkJ01ak8I6Kbmm M1whIPTuROhaEVOwFFgx eWJuOBf5MPOpxRWikpYv TtObUPTdbBYwzUW4YLZp VK2xjycuWGwrPDxhQLPn dmC5DYDdcFLpH1ZqKGZk RQ1twbghEBJ6VDyaPBHx JIA4GfJjPNOyg7Epuye8 FeJ5GFzgKNNvC8MlM6Ww ZXmyRSX2NXCnQFNuZMBj DY9KQbWsZGSbAXXpPlDx IFJFUSAzMzgxNDkwIEVQ NQEsAAXpKKerXdL5YuRu TFJSIDEyMzAwMDAwMjQg XFxuaCBcXHQgMSBcXGZs LRmoxlZ3u9iwUEKclOFb YYW3TFsicVNnVZIvINEp XFxkYiBPVlIgIiAxMjAy Ypq4JpX7CVi8DSMCQkLv LbZeSVSmNWN1DvScMDs4 GBk8VQpBLhGuYjFiBNX3 AjE1EEB1KZS0JDywzkfg SZk5WRPwNPwtzaNfTPme OvuvPLsfI43ucGXwACqd JoPvHNKrlPQBl5UbTZih bGFpblxmczIwXGNmMSBT aPEozU7sagFclFUeA6Or SAY7TVIupevdQDIeRYOq AWfuQkYMeXqiIiG1QHAf cCBTdGFpbiBTbGlkZXNc kBPpRDKfbKqmFFybqs67 CBP3d5sukREkQCgbEitg vGAsbeZ7SYhQXRHUNRjE SlZvOR9jKSuRO2XUJUdG QqjxLEJ3SJimgFJ4b9ry aGVou6u0BBjuSDQ5rYNb vZcreGe0QOXmn4YowFWb eEVzaOBmjJL7ENVjPGvf w4fuOCLlRDesa6CdDInH NNWXIL8WXB6jkRA4X0dI RLQFU8qSdOD9l5yuwNMv c4m7HSeiINN5nUNmg49n iZshBipurVY6GVolVdbl aM7jjUSMTBLFNtyQVcox fmMcBL1QNMpRMD5VvRA3 y9mcxWAjt7e8HNamMXQ2 zUsnmXJwutqrvy91GGY0 PMVqUsAfV7JnLWTztLXp RPyrQgrkvAC3DHfkDlxa pM0bcFCAAYQVWkuEEzdz taBrFX6BTOFIAF8RiRG1 LhWmyHN5UQ50IPNwVYUw fZKjZAtgZ335NYKyVCnb NDYnGsVeF4BqHIWyldNV GT3TZNMffnjwIPJwLMHL MVsmLJSyz9FrQAMhnvDE FWNyE1JvxVNkWRubN8Fp NCglLADdnq5wqLwzZaLa pWOiyXRjnRewDoW8GVWx YHgha6dkOVWjWViun9Tx SMaIUNLSSU2GCL1huWD2 GRcHI4HVO0fUiSGxXSep cDR3WG7AUObGHXNSmKQ7 qYkhnZj1y3gbgCZhw9d8 JBcqOIF1uQOcCwUwRpKf n9xliXNiYQtfGmgojCOl jrL8JXfTQZCEMYpGNxLt ZA6qQJtTEdqTMuY8NWSs KmO8W0xVE4OXFDQBGGQ2 KEo3iBK9aE96YIHsECRz bASqUYweE177WMDgMApq KLLsYvGdYIungh39PDT3 x9wyyGFaPOyzQtrmcQQq spY7QEwWOLRHPQkMFlZo IN6nYBqKUnmITCqPRxb3 Lmz2eX9VB9zekVy4FKu2 fXtcZmxkcnNsdCBcJzFj iY1yMsE3SUUPm2uynWOa YSgaJkvmqPIeelN3SPbR XSNVIXwPEuVpFL1vACfH KhxOQyO0TCN3AInWV3f8 ZLt8yQU1yL78YSMfWKNj fLUaSRgkD045CFIdAGcn JYVvNwSdJ7QnFNRhcEFs XHBhciBTaXplOiAyLjI0 IGNtXHBhclxzYTMwXGVw xUPCo9VyGZXBmQ5cMUjb dGUgYXNzZXNzbWVudCBm x3Mxo6UdE1hpHP6nYPNd jHEtY9xgi0IxEM5oFIQk VIOfw9ZmR6A9HENyFPpy s2vkJGTwJMnmt9MhXIdC HCTZKK9NKH1puIG6GAhF LUKWD3qLxXQ7UkG9rBE2 GU26OXQkVDDlgIShDCrw J234rOM3BFHzTMlvl2zo KVEjVVpau6LiMDjWBTCI NM7YFB5qyXM3SHeNQYPU XNcdDUt5GEd3aJI0n0da kKKlm4u7VTdvCHZ4aWhd bGFpblxmczIwXGNmMSAg FjyaFVFaYJ4dTIjcgJff zf37XBVbnQTiYZD3BC3s dHccZWDwY4MwL4XraqC2 BLEgryk3CZECBANUVXwG ON3LYPXTZTEKPJ6TCZfF PzCaIJR9FMsfIBq6WxHi WgA0UcK8NG1kELMEDAMO OImHQE8TCPTFZUWXYJ2L FvXqV7wPTCHOSdZlVBFR VKDLOYVcRoGJHB9nIxb6 Fpynl6L9V8qOFGWVMuLs ZVJGYFOXWRHrSC3BVEGW VMKOIO6LQYCMM37CAFIW QWWHE0VSW7aHLPUfq5Le qAphMvY4KmGtHD17NHb3 SYZjjxE7JddxJGd7JQo7 ColwFpx5BKKSLCOXBH8K BORMI63TZECIEWNVO3LR QNTJVbZWNEMWY79YFZMB ZDWTM9YHC8uAHSHGVzXT IJJDW76BEHTZQUKAK7PC QVNDJZOIUoOWGaRWQI6T QWGPTTOQHV1EUPtCAmWo YVJAS5QXQkUVJ9pxITSR HKQQUWCwSM4XjT== Immediate Assessment Adequate (test code = 9837) cellularity, favor malignant Major Classification MALIGNANT A (test code = 9839) Diagnosis (test code = b5vepAKvVJHcpZLqCVBm 34) KxoplkRtJHFdyHJjQ8Lw emmjEHrlTF4gJI0cwPgy kGPqqUZpSNVuXbLff0fn i452lBAtm5cuPQYYbore hCy6xTquI74gs5K1Ylth X2yiUCSuFTrkZJDgFEsg oLKuBZw7XFEfgXDyrlKv ZwAgFYCbrXQyhXX2DQOm ND8lvfcrNVheTBfjTFLh ldT1NCSetJGxR5QuEPQf JD0cvwbuEIA6JVpxICFd IFE3GaWbUSPzl9Cpbnz3 IzJbmYk9p3uiIFMaCADv lImtg9paSPO8DGDphAEt O3bdaP9gORIuYK6ttvsl n9miXTscFWlnMZOrtOV5 hdY4ZUHuoUEmW7AwdM0k ROFxRMJzdbMatDqteP6l ZnMyMFxjZjEgTHltcGgg wb7yJSciumoudNEnaW9m QCRse8LhxG01ZDZpb3Yv ciwgMTFSaSwgZmluZSBu ZWVkbGUgYXNwaXJhdGlv hvduxHVyXDMjbbf0FDNj Dj2PNYIDVOaDETXWGUxm Y7RGI6uNO55KOYhBHWby QMuVJABjZ1JYCM4AMLCe ND4YYBtOHA8HMTpWLnGD OPOUNTPYVhFpU8LrKYMj zB2uumKmZNCvum3= Comment (test code = l7xuuDBsVQCxhZOyLMZi 9835) SnvknyGuAFIdbDLyZ0Eg jdvoXRzmUS2mNI7afUij lNScfBYtFCZhSgTzc7uu b519uEGdl6thJVJUnidk kSx4hIflD67yt7C6Wckq J3oeUOVbQBvvSODoPFvv yDSkHVf3YZQvoGEhviYa ZkOzSMVcsMIwmWX5CANi YH8pcoaiSBwjWAftEAPc lnL0OOQaoNHjE2SqUVQq LP1fnfwrFAY1IDouMAPl EBS6PkVqSLLmb8Czqik1 MjBccGFyZFxwbGFpblxm czIwIFRoZSBzbWVhcnMg GH5tZEFhwWqhUpzeZ4mg x2QgyTqxifGvn8iitqBa RKCwo8YyoEZciCOsOSQa laLlANZwTCMqp37ke77x lPzuX1HwfQXxNIXgbU8c hSVep6m5uUEkmTbnERKy LNL3xTPnmaZhdRtpQCO8 eDWpLQ0iUSUroDuxS2ti wuAaBRTvCIUnB9NqJIIx L28qdBYioJ7mKUFkcGpk FC2dULcgpIZyD6IeiPDg UVAxxCGisI4uZEBgtGmj fOBjXXJmPSEwfTPvvG51 cyBkaWZmZXJlbnRpYXRp t21jQZawkYOha2Otpk31 lTYxx2Xgb2LxaP8hTMKw QTGek3GwOHOip55vJ7Ta oNBscK8wjiPiQXB1rE5s xqU0aCOaHUZmfWMxfVNn FILoZBQcuhQeg8poHRPt zZ27OFLwXFPipFcxBMI0 uS6bNYGhvCpkQTGoPWFz e8HelXv4RRBsw8FlpJVa MBPkHNTsXGfcoEg5ODBg x7RoSGIQNYGlWEQbQGEs VUNxh7BtnPToVDTiTIvv IZadHOVbprcxq7g5xLF7 nVOdAPThyvFiIYcyX58p d4wpLoeeDWHosXVmCJTd nmpxmNLenFzaQLe2tFTd dGxwYXIgUEQtTDEgKENs b45qCLGnFyUcMGZxs75k WSwrjc1IfVsuWHArn0Ac jPFRyk6ia7G4yE8lWMFf t5PiXZaVPSZlXhHmu3Xi pYs1UXrlGcnkFYzbOKEp hAc6uUICo9GrrQBBupBv om0ksFkdqmy9rCBvXoEG aGUgUEQtTDEgYXNzYXkg tCDblJEvyHFsG7N6wcEe CTB1PLMxiRgcbbWpRJSv iwZlgkTflTMistEiZL8k wj1cuT2iEJjmDK32yP2F FK0PRCjtP6tgsvCvJzCe Qg7lXKSgfOVrcIApUz4l gEZaFN2xXTXekl0adQck LWZpeGVkIHBhcmFmZmlu VRZmEcZrXJCbDSZgi6L8 FBS8v3ilGkQrfyLGS3eh KD26GJNsw30xRWR6z0M0 PDsqGJHmEL1cXSNxnPnh XEUrWwJnHDFdDBX5HAP8 qR1rEUrmdYldMRRvk5Hr H9zlnDZuLVY9WWBvMLBt US26BnUgfEKdRFQmHNg4 IGlzIGFwcHJvdmVkIGZv hzP3t8JtUQPfOEUfr36o WU3vn89rEXugD14sr6Qc YfOal8TsyCYvx3Ryj7Yg N3adeDCjxIwxvnCsxTWw EH3rGBRrgzCvpX7lfSRw d3KjfIbfBDByVWxajKMm aTPkxQJ6kQ9hREb6cBSk nYonIRAwynAtyM0ySe7j HHX8jX6qUMitpXEeP8Gz cUOqEAXeK28fGOWsSQTS KSwgdGhlIHBlcmNlbnRh D5Cet8RzzVIul1PkxPAf RG6speMfe2AlEGbfWzNk aR0tXI8oEKLqwHRmmgYy bnNpdHkgaXMgYXNzZXNz ZWQuIFBsZWFzZSByZWZl wrV6riN6wTQghV84IZ2c ZWQgdGhlcmFweSBwYWNr HGfjKAqcz3BhoRNbf3Sd FDFfdd8aonioeRPqdDJp WZ8eQVSth9SopMAoHSPa dcBpaw5omyPtSOWcDYSk I5CpnabteDplenUcupCc oKrsxsV1vPGppJDoqPcm FMLen2JpcFQxJSKzxNTk BuggVPYwiKEccJ9oiyNs WJ8tYB9jLR3qxp0msDPy i2LwBZH0hV7icvR3dBMj cyBhbmQgdGhlcmFwaWVz GMKgyb1jtLLtEUZdlZCt PW67DRDmRlryVZiuMlOw IFxwYXJccGFyZFxjZjBc cGFyfQ== Retained/Biomarker l3sdtIGdUBQynNLpFBZb Testing (test code = SjnmzfGaFALisDSlJ9Do 9835) rmaiSJkaEM8uPH8ioYwb vOCoeKBtRWPiPwGgb4ug h126vTHpe4cqOFRIthta vKm8iPypE66mj2Z0Lbec W47ewQXgDFP9ITMrCGFs wNOdJGViJRK5HEEpnZHw E1ivOKPaVX3uzdbdIEjv QKstFGZwqVJ3JULjbASm J3DtQJCjEGgnHFYftvb3 LoGkSz3ycICueAplQOwk YXJkXHBsYWluXGZzMjAg C7V4OQNiVWAwQOFuG2Rn IDMgSVBccGFyXHBhciBC eG3nGJZiUCSlBGYpiRqm BmuoiUJnUP4COGQDPRlz ODFqq8UmIuL+MzAwIGNl bGxzXHBhciBNREwgUGFw PvX2TVQopGVjOB9NODIB UTogMSBTXHBhciBGSVNI IERROiAxIFNccGFyXHBh cn0= Informational Points q4fvfFMnMMDmuLYoZaEe (test code = 9836) PFWuLTXyi1brWTKxjNKt ZzEwMzNcZnRuYmpcdWMx UTVtVvTah3ior203wZAa m0ffVBSwFwQ6iVHzTDNt mMYgL448ZPTqQWkkw3aj z8PfYLEeuXPhw7C6JAMQ GCquXGZWXQe3r5xpCkUz QlX7nRMxSUgsI1wpjxWh gBGvLGIkWQi9eY29ZCGf hJ4mqNVgESnlioSrAyG3 URkjKBTrLnZ2IOPxeHDi FRMiN3dtDSItXMvxOQCj OGdhyLZaXBI7fQzto5P8 bGVzaGVldHtcZjBcZnMy FrTSs9WlGRn6hAapT3Ev IYTaJzJ5mPDaYHFpQZjy LRJjDGKqtyN1vM43BJft qbY4jBTiz8Bqt38ii714 gA2cmFNsCIE5URPyOCAg fAZiHYYeNIG9CSXybAQn Y7bwRVReUS3losbiRPjl SBblAUElxAU7DKOusSPj X9BqRVLiVPftDMFojzv7 TkOqUf5ymXCgtTamWXgx v0mns5qysGPwLzh4HZYu ZyVoLnhsABacf7Dco0fx VLOaki5sFHZ1kINslLbo u8C3eLViMBObmHWazcEp TSGpQeM5MXrkUL0ish75 XVSrAOH3dx2ztTZslMzu byZbsZVkDSfsB5GgQNIe a693MKGkK4MeATXkj3K7 ilAsQzTvUDVueUC0zwB4 BZLlDHs4tPYevmO1edQp oOXnA0fpnQ4rVRKwRH8r axsua0hrSKpuFRyrSFAj uKW9qnH3JHDehMBdF7Eb mF1uDDBhVPigYFLqzkn5 FrKfUf5gxXIvzPcwQMss YmtwYWdlXHBnbmNvbnRc cGduZGVjXHBsYWluXHBs YWluXGYwXGZzMjRccWxc jLslmA2tJlCtImIyVYvu NF8bGRUiH8hwlPFeNLNn IPCkB2gaIuXkaG2reCld UMdjlgP9OJdjW12qIUA8 KWV1cyMbMKKfwgBuRVEr ULSoDE1acFSsNAWgWAXe BI1qHZL2SLrnnFFhKZDp XCEqCJFrk7ObYR8rIPWy wCCuREJ7KWGbg2YhF7Ks AMK0FXHitD8gIBCziSUT VCBNRCBBbmRlcnNvbiBQ WPJoh9odA6emCO8oVHpc Ro1aNZQphupmBVHobHXz gkGdBWRvAILuDDNjb8Ta HTlmbuYqyh52AUSiJE5k g8FhP2sgaWYlcPh3MUYp MPLwESQgn8UrNLOvqd51 RFDoGjcnuPahZKFmSy1d Xv2hUWFiuzJqOHF0KsUB AM3viigmmVHmsSbxwu5z XHBsYWluXGYyXGZzMjJc bGFuZzEwMzNcaGljaFxm LdntNyWiLVWvCQmgO7ro ZjJcZnMyMlxwYXJ9 Lab Interpretation (test Abnormal code = 58576-4) [facility] CenterMD NGS Blood [id number] 15:20:54 Test Item Value Reference Range Interpretation Comments Molecular Diagnostics (Received) (test Yes code = 8400) [facility] CenterCOVID-19 (SARS-CoV-2) PCR- Asymptomatic [id number] 07:14:46 Test Item Value Reference Range Interpretation Comments COVID19 (SARS Not Detected Not Detected CoV-2) Result (test code = ____[place] a 11954-0) qualitative reverse-transcr iptase polymerase brenton n reaction (RT-PC R) developed for t he Stephanie JOSE 680 0 system and inte nded for qualitative detection of SA RS CoV-2 RNA in nasopharyngeal and oropharyngeal s wab specimens colle cted from any indivi duals, including those suspected of CO VID-19 by their health care provider, and t hose without symptom s or other reasons t o suspect COVID-1 9. A fact sheet for patients provid ed by the manufacture r ([employer]) c an be reviewed at:https://www. fda.go v/media/575491/ downlo ad. A fact shee t for Health Care pro viders is provided by the software sales representative ([employer]) and can be reviewed at: https://www.fda .gov/m edia/568306/aida nload Results must be interpreted wit hin the context of all relevant clinic al and laboratory find ings and should not form the sole basis for a diagnosis or treatment decis ion. Positive result s do not rule out bacterial infec tion or co-infection with other viruses. Negative result s do not rule out SARS-CoV-2 and must be combined wit h clinical observations, p atient history, and/or epidemiological information. "Presumptive Positive" resul ts are due to partial amplification o f SARS-CoV-2 targ ets and indicates l ow amounts of viru s present in the specimen at or near the limit of detection. Regardless, individuals wit h "Presumptive Positive" resul ts should be manag ed per institutional guidelines as individuals pos itive for SARS-CoV-2 virus, including use o f appropriate inf ection control protoco ls. Internal contro ls are included to ass ess for possible amplification inhibitors. If inhibition is detected, testi ng is repeated and if inhibition is confirmed the specimen is res ulted as "Invalid". W hen an "Invalid" resul t occurs, it is recommended to wait 3 days before submitting a ne w specimen for te sting if clinically indicated. This assay has been approv ed by the FDA for use only under Emergency Use Authorization ( EUA) in laboratories that have been CLIA-certified to perform moderate-comple xity and high-comple xity tests. The performance characteristics of this assay were verified by the Microbiology Laboratory at [facility], CLIA Accreditation # : [id number] and CAP Accreditation # : [id number]. COVID19 SARS GEM EXPERT Swab Source (test code = 67686) COVID19 SARS Pre-OR Procedure Indication (test code = 41057) [facility] InyokernHepatitis C Virus [id number] 20:55:57 Test Item Value Reference Range Interpretation Comments HCVAb. (test Non Reactive Non Reactive Antibody detect ion in the code = 5762) immunocompromis ed and immunosuppresse d population may be delayed or absent entirely. There fore serial testing, correl ation with other clinical findings, and supplementa l testing (if available) should be taken into cons ideration when interpreti ng the results. [facility] CenterAFP2023-02-15 20:28:53 AFP<2.7<=8.3 ng/mLUT [facility] JENERAUnTexas Health Presbyterian DallasLDH2023-02-15 19:57:53 Test Item Value Reference Range Interpretation Comments LDH (test code = 246 U/L 135-225 H Results gre ater than 41945-8) 1651 U/L may no t be reliable due to matrix effect w ith extended diluti on as it exceeds the software sales representative's recommended braga it. Caution should be exercised when interpreting alba ch values and done in conjunction wit h clinical contex t. Lab Interpretation (test Abnormal code = 19614-5) [facility] CenterFractionated [id number] 19:57:39 Test Item Value Reference Range Interpretation Comments Bili Total (test 0.4 mg/dL <=1.2 Indocyanine Green (ICG) code = 1974-) may cause fal sely elevated biliru bin results. Total and direct bilirubin must not be measured from s amples containing indo cyanine green. False el evation of total bilirubin can be seen in patient s with IgG concentrations above 28 g/L. Bili Direct (test <=0.3 Indocyanin e Green (ICG) code = 1967-) may cause fal sely elevated biliru bin results. Total and direct bilirubin must not be measured from s amples containing indo cyanine green. Bili Indirect (test See Note 0.0-0.9 Unable t o calculate code = 1970-09) Indirect Bili felix result due to some par ameters are outside rep ortable range [facility] CenterGlomerular Filtration Rate 2022-11-14 19:57:37 Test Item Value Reference Range Interpretation Comments eGFR (test code = 95 See_Comment The eGFRcr [place] 77197-4) the 2020 CKD-EP I creatinine equation using creatinine, patient's age, and sex for adults 18 years of age and older. Other fa ctors, especially musc le mass, may affect accuracy and need to be considered.A ccording to the Kidney Dise ase: Improving Global Outcomes (KDIGO) CKD Work Group 2012 Clinical Practice Guidel ine, chronic kidney disease (CKD) is defined as the abnormalities of kidney struc ture or function, prese nt for more than 3 months, with implications fo r health. CKD should be class ified by cause, GFR marcia gory, and albuminuria cat egory. KDIGO guidelines prov gordon the following GFR c ategoriesStage Description GFR mL/min/1.73 m2G1* Normal or high >= 90G2* Mildly decrease d 60-89G3a Mildly to moder ately decreased 45-59 G3b Moderately to severely dec reased 30-44G4 Severely decrea sed 15-29G5 Kidney failure <15*In the absence of evid ence of kidney damage, neither G1 nor G2 fulfill criteri a for CKD. [Automated mess age] The system which ge nerated this result transmit lolita reference range: >=60 mL/ min/1.73 sq. m. The referenc e range was not used to int erpret this result as samy l/abnormal. [facility] CenterTotal Uthgsze9950-82-73 19:57:36 Test Item Value Reference Range Interpretation Comments Total Protein (test code = 2885-2) 7.8 g/dL 6.4-8.3 [facility] CenterMagnesium [id number] 19:57:34 Test Item Value Reference Range Interpretation Comments Magnesium (test code = 29472-3) 2.4 mg/dL 1.6-2.6 [facility] CenterGlucose, [id number] 19:57:33 Test Item Value Reference Range Interpretation Comments Glucose Random (test 81 mg/dL 70-199 Effecti ve 04/25/16, the code = 2345-7) glucose refer ence intervals have been updated based o n [place] [employer] ernesto delines (Standards of M edical Care in Diabete s 2016. Diabetes Care 2 016; 39: S13-S22).Fastin g blood glucose:Normal: 70-99 mg/dLImpaired f asting glucose (increa sed risk for diabetes or pre-diabetes): 100-125 mg/dLDiabetes m ellitus: >/=126 mg/dL Ra ndom blood glucose:N ormal: 70-199 mg/dLNot e: Random glucose >100 mg /dL is associated with increased risk for diabetes [facility] CenterAlkaline Ckanuwacscg6090-36-37 19:57:32 Test Item Value Reference Range Interpretation Comments Alk Phos (test code = 6768-6) 138 U/L 40-129 H Lab Interpretation (test code = Abnormal 51393-6) [facility] CenterPhosphorus [id number] 19:57:31 Test Item Value Reference Range Interpretation Comments Phosphorus (test code = 2777-1) 3.2 mg/dL 2.5-4.5 [facility] CenterALT2023-02-15 19:57:30 Test Item Value Reference Range Interpretation Comments ALT (test code = 1742-6) 23 U/L <=41 [facility] CenterCalcium [id number] 19:57:29 Test Item Value Reference Range Interpretation Comments Calcium Lvl (test code = 67958-3) 9.5 mg/dL 8.4-10.2 [facility].Serum Waoajwjkpw3389-10-24 19:57:28 Test Item Value Reference Range Interpretation Comments Creatinine (test code = 2160-0) 0.75 mg/dL 0.67-1.17 [facility] CenterAlbumin Lzeaa6754-46-01 19:57:27 Test Item Value Reference Range Interpretation Comments Albumin Lvl (test code 4.6 See_Comment [Aut omated message] The = 175-7) system which ge nerated this result tra nsmitted reference range : 3.5 - 5.2 gm/dL. The refe rence range was not used to interpret this result as normal/abnormal . [facility] CenterBUN2023-02-15 19:57:26 Test Item Value Reference Range Interpretation Comments BUN (test code = 3094-0) 15 mg/dL 6-23 [facility] CenterAspartate Aminotransferase 2022-11-14 19:57:25 Test Item Value Reference Range Interpretation Comments AST (test code = 1920-8) 23 U/L <=40 [facility] CenterElectrolyte [id number] 19:57:24 Test Item Value Reference Range Interpretation Comments Sodium Lvl (test code = 142 See_Comment [Au tomated message] The 2951-2) system which ge nerated this result tra nsmitted reference range : 136 - 145 mEq/L. The reference range was not u sed to interpret this result as normal/abnormal . Potassium Lvl (test 3.8 See_Comment [Automa lolita message] The code = 2823-3) system which generated this result tra nsmitted reference range : 3.5 - 5.1 mEq/L. The reference range was not u sed to interpret this result as normal/abnormal . Chloride (test code = 104 See_Comment [Auto mated message] The ) system which ge nerated this result tra nsmitted reference range : 98 - 107 mEq/L. The refe rence range was not u sed to interpret this result as normal/abnormal . CO2 (test code = 26 See_Comment [Automated message] The 2028-05) system which ge nerated this result tra nsmitted reference range : 22 - 29 mEq/L. The refe rence range was not u sed to interpret this result as normal/abnormal . Anion Gap (test code = 12 See_Comment [Aut omated message] The ) system which ge nerated this result tra nsmitted reference range : 4 - 14 mEq/L. The refe rence range was not u sed to interpret this result as normal/abnormal . [facility] CenteraPTT2023-02-15 19:31:15 Test Item Value Reference Range Interpretation Comments aPTT (test 28.4 See_Comment [Automated mes destinee] code = The system [employer] 18929-4) generated this result transmitted ref erence range: 22.8 - 3 4.2 second(s). The reference range was not used to int erpret this result as normal/abnormal . KRISTIE (test code This lab cannot be = KRISTIE) scheduled at the following locations due to collection/proccess ing restrictions: [facility] and [facility]. [facility] CenterProthrombin Time with [id number] 19:31:14 Test Item Value Reference Range Interpretation Comments PT (test code 13.3 See_Comment [Automated me ssage] = 5902-2) The system [employer] generated this result transmitted ref erence range: 11.9 - 1 4.1 second(s). The reference range was not used to int erpret this result as normal/abnormal . INR (test code 1.06 0.89-1.10 = 6301-6) KRISTIE (test code This lab cannot be = KRISTIE) scheduled at the following locations due to collection/proccess ing restrictions: [facility] and [facility]. [facility] CenterDifferential2023-02-15 19:15:58 Test Item Value Reference Range Interpretation Comments Neutrophil % (test code = 73.6 % 42.0-66.0 H 770-8) Lymphocyte % (test code = 14.3 % 24.0-44.0 L 736-9) Monocyte % (test code = 7.6 % 2.0-7.0 H 5905-5) Eosinophil % (test code = 3.6 % 1.0-4.0 713-8) Basophil % (test code = 0.5 % 0.0-1.0 706-2) IGRE % (test code = 0.4 % 0.0-0.4 IGRE % c ount 08152-1) includes Metamyelocytes, Myelocytes, and Promyelocytes. Neutrophil Abs (test code 10.84 K/uL 1.70-7.30 H = 751-8) Lymphocyte Abs (test code 2.10 K/uL 1.00-4.80 = 731-0) Monocyte Abs (test code = 1.12 K/uL 0.08-0.70 H 742-7) Eosinophil Abs (test code 0.53 K/uL 0.04-0.40 H = 711-2) Basophil Abs (test code = 0.07 K/uL 0.00-0.10 704-7) IG Abs (test code = 0.06 K/uL 0.00-0.04 H 57941-0) Lab Interpretation (test Abnormal code = 79736-5) [facility].OHK8680-71-28 19:15:51 Test Item Value Reference Range Interpretation Comments WBC (test code = 14.7 K/uL 4.0-11.0 H 6690-2) RBC (test code = 789-8) 4.32 See_Comment L [Au tomated message] The system [employer] generated this result transmitted ref erence range: 4.50 - 6 .00 M/uL. The refer ence range was not u sed to interpret this result as normal/abnor mal. Hgb (test code = 718-7) 13.3 See_Comment L [Au tomated message] The system [employer] generated this result transmitted ref erence range: 14.0 - 1 8.0 gm/dL. The refe rence range was not u sed to interpret this result as normal/abnor mal. Hct (test code = 40.7 % 40.0-54.0 4544-3) MCV (test code = 787-2) 94 fL 82-98 MCH (test code = 785-6) 30.8 pg 27.0-31.0 MCHC (test code = 32.7 See_Comment [Automate d message] 786-4) The system [employer] generated this result transmitted ref erence range: 31.0 - 3 6.0 gm/dL. The refe rence range was not u sed to interpret this result as normal/abnor mal. RDW-SD (test code = 45.5 fL 35.1-46.3 42802-4) RDW-CV (test code = 13.3 % 12.0-15.5 788-0) Platelet count (test 389 K/uL 140-440 code = 777-3) MPV (test code = 11.3 fL 4.0-10.4 H 62285-6) INRBC (test code = 0.0 % <=0.0 The INRBC (instrument 69028-1) NRBC) value ref lects the enumeration of nucleated red b lood cells contained in a 200uL sampleof whole blood analyzed by the instrument. Thi s value maydiffer from the NRBC value reported in a m anual differential,wh ich is based on a 100 cell differential. Lab Interpretation Abnormal (test code = 27952-6) [facility] Cancer CenterCT, CHEST, WITHOUT CONTRAST 2022-10-29 14:11:00Navigational bronchoscopy (Super D or Robotic ION) protocolRelease to patient->ImmediateWhich [facility]/ [facility] radiology location is preferred?->[facility] [employer] ID = [id number]; Insurance Company Name = [facility]; Insurance Company Phone Number = ; Policy Number = [id number] : 1950 Sex: MFINAL REPORT CT of the Chest dated 10/29/2022 CLINICAL INFORMATION: R91.8\\S\\Other nonspecific abnormal finding of lung field ; J44.9\\S\\Chronic obstructive pulmonary disease, unspecified ; J41.0\\S\\Simple chronic bronchitis ; R06.09\\S\\Other forms of dyspnea ; R59.9\\S\\Enlarged lymph nodes, unspecified Comment: Axial images of the chest were obtained from thoracic inlet to the upper abdomen without intravenous contrast. This exam was performed according to our departmental dose-optimization program, which includes automated exposure control, adjustment of the mA and/or kV according to patient size and/or use of interactive reconstruction technique. Heart is normal in size. Great vessels are unremarkable. Nonspecific subcentimeter lymph nodes are seen in the paratracheal and subcarinal mediastinum. No adenopathy in the mediastinum or perihilar region. Trachea and mainstem bronchi are patent. There is moderate pulmonary emphysema. A 4.2 x 4.5 cm mass is seen in the right mid lobe. A 2.1 x 3.5cm spiculated mass is seen in the right upper lobe. Airspace disease is seen in the peripheral of the right mid lobe suggestive of obstructive pneumonia. There is trace right pleural effusion. Visualized upper abdomen demonstrates no focal lesion. Impression: 1. Mass lesions in the right mid and upperlobes. Recommend tissue diagnosis.2. Pulmonary emphysema. Signed: Brando Mckeonepdeandre Verified Date/Time: 10/29/2022 14:11:01 Reading Location: [address] Body Reading Room CT, [id number] 09:57:00BUN or creatinine as needed for CTUnlisted Reason for Exam - Click Yes and Enter Reason Below->YesUnlisted Reason for Exam- >DyspepsiaWill this procedure require oral contrast?->Yes [facility] : 1950 Sex: MFINAL REPORT CT of the abdomen and pelvis, with contrast Clinical History: Unlisted Reason for ExamDyspepsia Technique: CT of the abdomen and pelvis is performed with intravenous contrast administration. This exam was performed according to our departmental dose optimization program which includes automated exposure control, adjustment of the mA and/or kV according to patient's size and/or use of iterative reconstructive technique. Comparison Film: None Discussion: There is a calcified granuloma in the right lower lobe. No liver lesion is identified. No biliary ductal dilatation, gallbladder is normal. Spleen, pancreas, and adrenal glands are normal. Kidneys demonstrate no hydronephrosis,radiopaque stone, or mass. In the left kidney, there is a 3 cm cyst. A subcentimeter hypodensity in the right kidney is likely a cyst as well, too small to definitively characterize. No bowel obstruction, or abnormal bowel wall thickening. There is minimal colonic diverticulosis. No pericecal inflammat ory change. In the pelvis, bladder is normal. Status post prostatectomy. No adenopathy, or ascites. Mild to moderate vascular calcification. Bony structures demonstrate degenerative changes. There is aleft-sided L5 pars defect. Impression: No acute process is identified in the abdomen or pelvis. Signed: Angeli, Ana Rosa MDReport Verified Date/Time: 03/28/2022 09:57:23 Reading Location: [facility] C013X Ortho Consult Reading Room P-[id number] 07:11:58 Test Item Value Reference Range Interpretation Comments POC-Creatinine (test 0.7 mg/dL 0.6-1.3 : TESTE D AT [facility] 720 code = 94205-8) [place] [address] 0: Fraud Prevention Analyst/Techni misa ID = [id number] for JASON ZULUAGA POC-EGFR (test code 111 mL/min/1.73M2 = 21706-8) [facility] 07:11:58 Test Item Value Reference Range Interpretation Comments POC-Creatinine (test 0.7 mg/dL 0.6-1.3 : TESTE D AT [facility] 720 code = 75830-5) [place] [address] 0: Fraud Prevention Analyst/Techni misa ID = [id number] for JASON ZULUAGA POC-EGFR (test code 111 mL/min/1.73M2 = 48516-2) [facility]05 07:11:58 Test Item Value Reference Range Interpretation Comments POC-Creatinine (test 0.7 mg/dL 0.6-1.3 : TESTE D AT [facility] 7200 code = 92982-3) [place] [address] 0: Fraud Prevention Analyst/Techni misa ID = [id number] for JASON ZULUAGA POC-EGFR (test code 111 mL/min/1.73M2 = 12386-4) [facility]oj[facility]yf[facility]94[facility]-10 07:11:58 Test Item Value Reference Range Interpretation Comments POC-Creatinine (test 0.7 mg/dL 0.6-1.3 : TESTE D AT [facility] 7200 code = 29957-3) [place] [address] 0: Fraud Prevention Analyst/Techni misa ID = [id number] for JASON ZULUAGA POC-EGFR (test code 111 mL/min/1.73M2 = 27296-7) [facility]62 07:11:58 Test Item Value Reference Range Interpretation Comments POC-CREATININE 0.7 mg/dL 0.6-1.3 : TESTED AT [facility] ([facility]) (test 941 BIPIN CARDOZA code = 1859) [place], [facility] 7 30: Fraud Prevention Analyst/Techni misa ID = [id number] for JASON THORNE POC-EGFR 111 mL/min/1.73M2 ([facility]) (test code = 1860)
--- NOTE | 2022-11-26 19:07 | ER ---
Nurse's Notes [facility] Name: Obed Linton Age: 72 yrs Sex: Male : 1950 Arrival Date: 11/26/2022 Time: 18:27 Bed IW4 Private MD: Castro Ghotra H Diagnosis: Abnormal MRI Presentation: 11/26 18:29 Chief complaint: Patient states: Had MRI today at [facility] - just got back into [address] Received phone call from doctor and said two strokes showed up on MRI - referred to local ER. Pt denies any symptoms "Just anxiety.". Coronavirus screen: At this time, the client does not indicate any symptoms associated with coronavirus-19. Ebola Screen: No symptoms or risks identified at this time. Initial Sepsis Screen: Does the patient meet any 2 criteria? No. Patient's initial sepsis screen is negative. Does the patient have a suspected source of infection? No. Patient's initial sepsis screen is negative. Risk Assessment: Do you want to hurt yourself or someone else? Patient reports no desire to harm self or others. Onset of symptoms was November 26, 2022 at 18:31. 18:29 Method Of Arrival: Ambulatory ld1 18:29 Acuity: COLLIN 2 ld1 18:37 No acute neurological deficit is noted. ld1 Triage Assessment: 18:31 General: Appears in no apparent distress. comfortable, Behavior is calm, cooperative, ld1 appropriate for age. Pain: Denies pain. EENT: No signs and/or symptoms were reported regarding the EENT system. Neuro: Level of Consciousness is awake, alert, obeys commands, Oriented to person, place, time, situation. Cardiovascular: Capillary refill < 3 seconds Patient's skin is warm and dry. Respiratory: Airway is patent Respiratory effort is even, unlabored. GI: Abdomen is flat, non-distended. : No signs and/or symptoms were reported regarding the genitourinary system. Derm: No signs and/or symptoms reported regarding the dermatologic system. Historical: - Allergies: 18:31 Bactrim; ld1 - PMHx: 18:31 Lung cancer; Hypertensive disorder; Hypercholesterolemia; GERD; ld1 - PSHx: 18:31 Appendectomy; Prostate removal; ld1 - Immunization history:: Adult Immunizations up to date, Client reports receiving the 2nd dose of the Covid vaccine. - Social history:: Smoking status: Patient denies any tobacco usage or history of. Patient uses alcohol, occasionally. Assessment: 18:36 VAN Scoring: Arm Drift: Patients demonstrates NO arm weakness. Patient is VAN Negative. ld1 Visual Disturbance: No visual disturbance noted. Aphasia: No aphasia noted. Neglect: No neglect noted. Reassessment: ERP notified. ERP said patient is safe to return to [facility] due to no room being avaiable. Vital Signs: 18:29 BP 161 / 102; Pulse 113; Resp 18; Temp 97.7(O); Pulse Ox 100% on R/A; Weight 79.83 kg; ld1 Height 6 ft. 0 in. (182.88 cm); Pain 0/10; 18:29 Body Mass Index 23.87 (79.83 kg, 182.88 cm) ld1 NIH Stroke Scale Scores: 18:36 NIHSS Score: 0 ld1 19:43 NIHSS Score: 0 ms3 ED Course: 18:27 Patient arrived in ED. am2 18:27 Castro Ghotra DO is Private Physician. am2 18:31 Triage completed. ld1 18:31 Arm band placed on right wrist. ld1 18:47 Lee Mathews DO is Attending Physician. ms3 19:06 Roc Lowe MD is Referral Physician. ms3 Administered Medications: No medications were administered Outcome: 19:06 Discharge ordered by . ms3 19:10 Patient left the ED. jh5 NIH Stroke Scale - NIH Stroke Score Date: 11/26/2022 Time: 18:36 Total Score = 0 1a. Level of Consciousness (LOC) - 0(Alert) 1b. Level of Consciousness (LOC) (Month \\T\\ Age) - 0(Both) 1c. LOC Commands (Open \\T\\ Closes Eyes/Care Transitions Manager) - 0(Both) 2. Best Gaze (Lateral Gaze Paresis) - 0(Normal) 3. Visual Field Loss - 0(No visual loss) 4. Facial Palsy - 0(Normal) 5a. Left Arm: Motor (10-second hold) - 0(No drift) 5b. Right Arm: Motor (10-second hold) - 0(No drift) 6a. Left Leg: Motor (5-second hold - always test supine) - 0(No drift) 6b. Right Leg: Motor (5-second hold - always test supine) - 0(No drift) 7. Limb Ataxia (finger/nose \\T\\ heel/dawn - test with eyes open) - 0(Absent) 8. Sensory Loss (pinprick arms/legs/face) - 0(Normal) 9. Best Language: Aphasia (description/naming/reading) - 0(No aphasia) 10. Dysarthria (speech clarity - read or repeat words) - 0(Normal) 11. Extinction and Inattention (visual/tactile/auditory/spatial/personal) - 0(No abnormality) Initials: ld1 NIH Stroke Scale - NIH Stroke Score Date: 11/26/2022 Time: 19:43 Total Score = 0 1a. Level of Consciousness (LOC) - 0(Alert) 1b. Level of Consciousness (LOC) (Month \\T\\ Age) - 0(Both) 1c. LOC Commands (Open \\T\\ Closes Eyes/Care Transitions Manager) - 0(Both) 2. Best Gaze (Lateral Gaze Paresis) - 0(Normal) 3. Visual Field Loss - 0(No visual loss) 4. Facial Palsy - 0(Normal) 5a. Left Arm: Motor (10-second hold) - 0(No drift) 5b. Right Arm: Motor (10-second hold) - 0(No drift) 6a. Left Leg: Motor (5-second hold - always test supine) - 0(No drift) 6b. Right Leg: Motor (5-second hold - always test supine) - 0(No drift) 7. Limb Ataxia (finger/nose \\T\\ heel/dawn - test with eyes open) - 0(Absent) 8. Sensory Loss (pinprick arms/legs/face) - 0(Normal) 9. Best Language: Aphasia (description/naming/reading) - 0(No aphasia) 10. Dysarthria (speech clarity - read or repeat words) - 0(Normal) 11. Extinction and Inattention (visual/tactile/auditory/spatial/personal) - 0(No abnormality) Initials: ms3 Signatures: Ursula Arteaga am2 Lee Mathews DO DO ms3 Beatriz Bee, RN RN ld1 Eneida Senior RN RN jh5
--- NOTE | 2022-11-26 19:07 | EDPHYS ---
Physician Documentation [facility] Name: Obed Linton Age: 72 yrs Sex: Male : 1950 Arrival Date: 11/26/2022 Time: 18:27 Bed IW4 Private MD: Castro Ghotra H ED Physician Lee Mathews HPI: 11/26 19:43 This 72 yrs old Male presents to ER via Ambulatory with complaints of Abnormal MRI. ms3 19:43 72-year-old male with past medical history of lung cancer, GERD, hypertension, ms3 hypercholesterolemia presents after having an MRI of his brain obtained at [facility] today. Patient states he was called stating he had 2 areas where he had a stroke. Patient denies pain. Patient denies headache. Patient denies numbness, weakness, slurred speech, dizziness.. Historical: - Allergies: 18:31 Bactrim; ld1 - PMHx: 18:31 Lung cancer; Hypertensive disorder; Hypercholesterolemia; GERD; ld1 - PSHx: 18:31 Appendectomy; Prostate removal; ld1 - Immunization history:: Adult Immunizations up to date, Client reports receiving the 2nd dose of the Covid vaccine. - Social history:: Smoking status: Patient denies any tobacco usage or history of. Patient uses alcohol, occasionally. ROS: 19:43 Constitutional: Negative for fever, and chills. Eyes: Negative for injury, pain, ms3 redness, and discharge, Neck: Negative for injury, pain, and swelling, Cardiovascular: Negative for chest pain, and palpitations. Respiratory: Negative for shortness of breath, cough, wheezing, and pleuritic chest pain, Abdomen/GI: Negative for abdominal pain, nausea, vomiting, diarrhea, and constipation, Back: Negative for injury and pain, MS/Extremity: Negative for injury and deformity, Skin: Negative for injury, rash, and discoloration, Neuro: Negative for headache, weakness, numbness, tingling. 19:43 All other systems are negative. Exam: 19:43 CT study not indicated or reported. Reason for not performing CT: Patient without ms3 neuro symptoms and abnormal MRI 19:43 Constitutional: This is a well developed, well nourished patient who is awake, alert, and in no acute distress. Head/Face: Normocephalic, atraumatic. Eyes: Pupils equal round and reactive to light, extra-ocular motions intact. Lids and lashes normal. Conjunctiva and sclera are non-icteric and not injected. Periorbital areas with no swelling, redness, or edema. ENT: Nares patent. No nasal discharge, no septal abnormalities noted. Tympanic membranes are normal and external auditory canals are clear. Oropharynx with no redness, swelling, or masses, exudates, or evidence of obstruction, uvula midline. Mucous membranes moist. Neck: Trachea midline, no cervical lymphadenopathy. Supple, full range of motion without nuchal rigidity, or vertebral point tenderness. No Meningismus. Chest/axilla: Normal chest wall appearance and motion. Nontender with no deformity. Cardiovascular: Regular rate and rhythm with a normal S1 and S2. No gallops, murmurs, or rubs. Normal PMI, no JVD. No pulse deficits. Respiratory: Lungs have equal breath sounds bilaterally, clear to auscultation and percussion. No rales, rhonchi or wheezes noted. No increased work of breathing, no retractions or nasal flaring. Abdomen/GI: Soft, non-tender, with normal bowel sounds. No distension or tympany. No guarding or rebound. No evidence of tenderness throughout. Skin: Warm, dry with normal turgor. Normal color with no rashes, no lesions, and no evidence of cellulitis. MS/ Extremity: Pulses equal, no cyanosis. Neurovascular intact. Full, normal range of motion. 19:43 Neuro: Orientation: is normal, Mentation: is normal, Memory: is normal, Cranial nerves: CN I not tested, CN II- XII are normal as tested, Cerebellar function: is grossly normal, normal finger to nose testing, Motor: is normal, Sensation: is normal, no obvious gross deficits, Gait: is steady, at a normal pace. Vital Signs: 18:29 BP 161 / 102; Pulse 113; Resp 18; Temp 97.7(O); Pulse Ox 100% on R/A; Weight 79.83 kg; ld1 Height 6 ft. 0 in. (182.88 cm); Pain 0/10; 18:29 Body Mass Index 23.87 (79.83 kg, 182.88 cm) ld1 NIH Stroke Scale Scores: 18:36 NIHSS Score: 0 ld1 19:43 NIHSS Score: 0 ms3 MDM: 18:47 Patient medically screened. ms3 19:43 Differential diagnosis: CVA. Data reviewed: vital signs, nurses notes, and as a result, ms3 I will discharge patient. Management of patient was discussed with the following: Experimental Psychologist: Dr Lowe. Recommends holding BP medications for 3 days. ASA, Statin.. ED course: Discussed admission with patient for inpatient workup and patient states he has a lot of important appointments tomorrow. Discussed case with Dr Rosa and he will see patient in clinic. Patient to follow up with Dr Lwoe in 1-2 days. Patient understands/ agrees with plan. All questions answered. Return precautions given to include weakness, numbness, difficulty with speech or gait. Patient understands/ agrees with plan.. Administered Medications: No medications were administered Disposition Summary: 11/26/22 19:06 Discharge Ordered Location: Home ms3 Condition: Stable ms3 Diagnosis - Abnormal MRI ms3 Followup: ms3 - With: Roc Lowe MD - When: 1 - 2 days - Reason: Recheck today's complaints Discharge Instructions: - Discharge Summary Sheet ms3 - Magnetic Resonance Imaging ms3 Forms: - Medication Reconciliation Form ms3 - Thank You Letter ms3 - Antibiotic Education ms3 - Prescription Opioid Use ms3 NIH Stroke Scale - NIH Stroke Score Date: 11/26/2022 Time: 18:36 Total Score = 0 1a. Level of Consciousness (LOC) - 0(Alert) 1b. Level of Consciousness (LOC) (Month \T\ Age) - 0(Both) 1c. LOC Commands (Open \T\ Closes Eyes/Chief Psychology) - 0(Both) 2. Best Gaze (Lateral Gaze Paresis) - 0(Normal) 3. Visual Field Loss - 0(No visual loss) 4. Facial Palsy - 0(Normal) 5a. Left Arm: Motor (10-second hold) - 0(No drift) 5b. Right Arm: Motor (10-second hold) - 0(No drift) 6a. Left Leg: Motor (5-second hold - always test supine) - 0(No drift) 6b. Right Leg: Motor (5-second hold - always test supine) - 0(No drift) 7. Limb Ataxia (finger/nose \T\ heel/dawn - test with eyes open) - 0(Absent) 8. Sensory Loss (pinprick arms/legs/face) - 0(Normal) 9. Best Language: Aphasia (description/naming/reading) - 0(No aphasia) 10. Dysarthria (speech clarity - read or repeat words) - 0(Normal) 11. Extinction and Inattention (visual/tactile/auditory/spatial/personal) - 0(No abnormality) Initials: ld1 NIH Stroke Scale - NIH Stroke Score Date: 11/26/2022 Time: 19:43 Total Score = 0 1a. Level of Consciousness (LOC) - 0(Alert) 1b. Level of Consciousness (LOC) (Month \T\ Age) - 0(Both) 1c. LOC Commands (Open \T\ Closes Eyes/Chief Psychology) - 0(Both) 2. Best Gaze (Lateral Gaze Paresis) - 0(Normal) 3. Visual Field Loss - 0(No visual loss) 4. Facial Palsy - 0(Normal) 5a. Left Arm: Motor (10-second hold) - 0(No drift) 5b. Right Arm: Motor (10-second hold) - 0(No drift) 6a. Left Leg: Motor (5-second hold - always test supine) - 0(No drift) 6b. Right Leg: Motor (5-second hold - always test supine) - 0(No drift) 7. Limb Ataxia (finger/nose \T\ heel/dawn - test with eyes open) - 0(Absent) 8. Sensory Loss (pinprick arms/legs/face) - 0(Normal) 9. Best Language: Aphasia (description/naming/reading) - 0(No aphasia) 10. Dysarthria (speech clarity - read or repeat words) - 0(Normal) 11. Extinction and Inattention (visual/tactile/auditory/spatial/personal) - 0(No abnormality) Initials: ms3 Signatures: Lee Mathews, DO ms3 Beatriz Bee, RN RN ld1
[2022-11-26 19:42] VITALS: BP 161/102; TEMP 97.7; O2SAT 100
== END 2022-11-26 19:10 | disposition home or self-care (01) ==
LOC: ER 18:26
DX: R93.89 Abnormal findings on diagnostic imaging of other specified body structures (principal); I10 Essential (primary) hypertension; Z85.118 Personal history of other malignant neoplasm of bronchus and lung; Z88.1 Allergy status to other antibiotic agents
CPT/HCPCS: 99281